=== PATIENT | male | born 1960 | race Caucasian/White ===

== ENCOUNTER 2016-08-03 06:04 | Inpatient (IN) | payer OTHER ==
[~2016-08-03 06:04] MED LIST: MORPHINE SULFATE 15 MG TABLET.SA PO PRN; RINGERS SOLUTION,LACTATED 1,000 ML IV PRN; ceFAZolin SODIUM 1 GM VIAL IV PRN
[2016-08-03] MEDS ORDERED: RINGERS SOLUTION,LACTATED 1,000 ML IV ONE ×3 (07:45→10:35)
[2016-08-03] MEDS: TRANEXAMIC ACID 1,000 MG in NORMAL SALINE 100 ML IV PRN ×3 (08:39→10:10)
[2016-08-03] MEDS: ROPIVACAINE HCL/PF 100 MG, KETOROLAC TROMETHAMINE 30 MG, EPINEPHrine 0.2 MG in NORMAL S... IJ PRN ×2 (09:48→10:00)
[2016-08-03] MEDS ORDERED: PROMETHAZINE HCL 5 MG in DEXTROSE 5 % IN WATER 50 ML IV PRN ×2 (11:03)
[2016-08-03] MEDS ORDERED: ACETAMINOPHEN 500 MG TABLET PO PRN (11:03)
[2016-08-03] MEDS ORDERED: MAGNESIUM HYDROXIDE 30 ML UDC PO PRN (11:03)
[2016-08-03] MEDS ORDERED: ONDANSETRON HCL/PF 2 MG/ML VIAL IV PRN (11:03)
[2016-08-03] MEDS ORDERED: MAG HYDROX/ALUMINUM HYD/SIMETH 30 ML UDC PO PRN (11:03)
[2016-08-03] MEDS ORDERED: diphenhydrAMINE HCL 50 MG/ML VIAL IV PRN (11:03)
[2016-08-03] MEDS ORDERED: HYDROmorphone HCL 1 MG/ML DISP.SYRIN IV PRN (11:03)
[2016-08-03] MEDS ORDERED: ZOLPIDEM TARTRATE 5 MG TABLET PO PRN (11:03)
[2016-08-03] MEDS ORDERED: NITROGLYCERIN 0.4 MG/TAB BTL SL PRN (11:07)
--- OUTSIDE RECORDS SUMMARY | 2016-08-03 11:17 | XMS REPORT | Continuity of Care Document ---
:1960 Author Organization [facility] ([facility]) Address [address] [place] [address] Phone [phone] Care Team Providers Name Role Phone Tawanda Nails Primary Care Provider [phone] Source Comments This disclosure is being made pursuant to the Care Everywhere program, applicable federal and state laws, and may not contain all informaitonavailable regarding this patient.[facility] ([facility]) Active Allergies and Adverse Reactions Allergen Noted Date Severity Reactions Comments Sulfamethoprim Ds 04/09/2012 Rash Current Medications Prescription Sig. Disp. Refills Start Date End Date Status atorvastatin 40 mg tablet Take 20 mg by Active mouth every evening. carvedilol 3.125 mg tablet Take 3.125 mg Active by mouth 2 times daily. aspirin 325 mg tablet Take 325 mg by Active mouth daily. multivitamin (MEN'S Take 1 Tab by Active MULTI-VITAMIN) tablet mouth daily. KRILL/OM3/DHA/EPA/OM6/LIP/ Take by mouth Active ASTX (KRILL OIL, OMEGA 3 & daily. 6, PO) L GASSERI/B BIFIDUM/B Take 1 Tab by Active LONGUM (REDD' COLON mouth daily. HEALTH PO) meloxicam 15 mg tablet Take 15 mg by Active mouth daily ramipril 10 mg capsule Take 10 mg by Active mouth 2 times daily hydrochlorothiazide 25 mg Take 0.5 45 tablet 3 01/21/2015 Active tablet tablets (12.5 mg total) by mouth daily cetirizine-pseudoephedrine Take 1 tablet Active 5-120 mg per XR tablet by mouth as needed. Active Problems Problem Noted Date Essential (primary) hypertension 12/31/2013 Raynaud's phenomenon 04/09/2012 Dyslipidemia Coronary artery disease Overview: TISHA to LAD-2009 Immunizations Name Dates Previously Given Next Due Influenza, unspecified 02/05/2012 Social History Tobacco Use Types Packs/Day Years Used Date Never Smoker Cigarettes Smokeless Tobacco: Never Used Alcohol Use Drinks/Week oz/Week Comments Yes Occasional drink, i.e. 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 Pulse 70 01/26/2016 11:13 AM LEATHER REPAIRER Temperature 36.9 C (98.4 F) 04/09/2012 8:57 AM LEATHER REPAIRER Respiratory Rate - - Height 1.854 m (6' 1") 01/26/2016 11:13 AM LEATHER REPAIRER Weight 136.079 kg (300 lb) 01/26/2016 11:13 AM LEATHER REPAIRER Body Mass Index 39.59 01/26/2016 11:13 AM LEATHER REPAIRER Oxygen Saturation - - Plan of Care Date Type Specialty Providers Description 02/07/2017 Appointment Heart and Vascular Nava Flores ARNP Chief Comp: Patient [address] [address] Visit [phone] (Fax) Health Maintenance Due Date Last Done Comments HCV Screening 1960 Hepatitis B Vaccine (1 of 3 - Primary Series) 1960 Tdap Vaccine 1972 Lipid Disorder Screening 10/20/1979 MMR Vaccine 10/20/1979 Td Vaccine 10/20/1979 Colonoscopy 2011 Prostate Cancer Screening 10/20/2011 Influenza Vaccine: Seasonal (#1) 10/05/2015 02/05/2012 Results from Last 3 Months Not on file
[2016-08-03] MEDS ORDERED: HYDROmorphone HCL 1 MG/ML DISP.SYRIN IV ONE (11:23)
[2016-08-03] MEDS ORDERED: NALOXONE HCL 0.4 MG/ML VIAL IV PRN (11:24)
[2016-08-03] MEDS ORDERED: HYDROmorphone HCL 2 MG/ML VIAL IV PRN (11:24)
[2016-08-03] MEDS: KETOROLAC TROMETHAMINE 15 MG/ML VIAL IV SCH ×3 (12:03→23:24)
[2016-08-03] MEDS: ceFAZolin SODIUM 1 GM in DEXTROSE 5 % IN WATER 100 ML IV SCH ×4 (12:10→18:56)
[2016-08-03] MEDS: DEXTROSE 5%-LACTATED RINGERS 1,000 ML IV PRN ×2 (12:10→21:30)
[2016-08-03] MEDS: oxyCODONE HCL/ACETAMINOPHEN 1 TAB TABLET PO PRN (15:34)
[2016-08-03] MEDS: MORPHINE SULFATE 15 MG TABLET.SA PO SCH (20:23)
[2016-08-03] MEDS: FLUTICASONE PROPIONATE 120 SPRAY INHALER NS SCH (20:25)
[2016-08-03] MEDS: RAMIPRIL 2.5 MG CAPSULE PO SCH (20:26)
[2016-08-03] MEDS: CARVEDILOL 3.125 MG TABLET PO SCH (20:26)
[2016-08-03] MEDS: SENNOSIDES/DOCUSATE SODIUM 1 TAB TABLET PO SCH (20:26)
[2016-08-03] MEDS: ROSUVASTATIN CALCIUM 10 MG TABLET PO SCH (20:26)
[2016-08-04] MEDS: ceFAZolin SODIUM 1 GM in DEXTROSE 5 % IN WATER 100 ML IV SCH ×2 (00:37)
[2016-08-04] MEDS: oxyCODONE HCL/ACETAMINOPHEN 1 TAB TABLET PO PRN ×4 (01:23→22:45)
[2016-08-04] MEDS: KETOROLAC TROMETHAMINE 15 MG/ML VIAL IV SCH ×4 (05:03→23:54)
[2016-08-04 05:35] LABS: Hematocrit 33.1 % (42.0-52.0); Hemoglobin 10.9 gm/dL (13.5-18.0); Mean Cell Volume 90.9 fl (78-100); Mean Corpuscular Hemoglobin 29.9 pg (27-31); Mean Corpuscular Hgb Conc 32.9 g/dl (32-36); Mean Platelet Volume 11.6 fl (6.0-9.5); Platelet Count 124 K/mm3 (150-450); Red Blood Count 3.64 M/mm3 (4.7-6.0); Red Cell Distribution Width 13.9 % (11.5-14.0); White Blood Count 5.7 K/mm3 (4.0-10.5)
[2016-08-04 05:42] LABS: Anion Gap 7.7 mmol/L (6.8-13.8); BUN/Creatinine Ratio 13.4 (9.0-21.6); Calcium * 8.2 mg/dL (7.9-10.9); Carbon Dioxide 32.2 mmol/L (24-32.6); Estimated Creat Clear 79.5; Potassium 3.9 mmol/L (3.4-4.6)
[2016-08-04] MEDS: DEXTROSE 5%-LACTATED RINGERS 1,000 ML IV PRN (05:47)
--- NOTE | 2016-08-04 07:58 | PN ---
Subjective - Date and Time Seen Date: 08/04/16 Time: 07:54 Subjective Narrative: Subjective: Reports no concerns or pain. Was able to get to the chair with therapy. Pain is well-controlled. Voiding without any complications. Tolerating by mouth intake. Denies any nausea or vomiting. Denies calf pain. Slept well. Physical exam: Alert and oriented to person, place and time Right lower extremity: Palpable dorsalis pedis pulse. Sensation grossly intact to light touch. Dressings clean and dry. Able to flex and extend ankle and toes. No excessive drainage. Calf and thigh are soft and nontender. Assessment: Postop day 1 status post right revision total knee arthroplasty. Plan: Continue with physical and occupational therapy weightbearing as tolerated. Continue with anticoagulation. 24 hours postoperative prophylactic antibiotics. Pain control with goal to rely on oral medications. Continue bowel regimen. Will need 6 weeks with walker or assitive device to protect joint while ambulating during the recovery process. Discharge planning. Discontinue drain and Jacobson catheter. Repeat labs in a.m. With history of DVT will plan for 30 days of anticoagulation. Objective - Vitals Vitals: Last Vital Signs Temp 36.8 C 08/04/16 02:01 Pulse 97 08/04/16 06:23 Resp 20 08/04/16 06:23 BP 129/79 08/04/16 06:23 Pulse Ox 100 08/04/16 06:23 - Abnormal Lab Findings Abnormal Lab Findings: Abnormal Lab Results 08/04/16 Range/Units 05:29 RBC 3.64 L (4.7-6.0) M/mm3 Hgb 10.9 L (13.5-18.0) gm/dL Hct 33.1 L (42.0-52.0) % Plt Count 124 L (150-450) K/mm3 MPV 11.6 H (6.0-9.5) fl - Exam Constitutional: Present: Alert, Oriented x3 Cauti Physician Documentation - Urinary Catheter Management Uretheral (Jacobson) Date of Insertion: 08/03/16 Time of Insertion: 08:00 Assessment/Plan - Problems/Diagnosis (1) Status post revision of total replacement of right knee Problem: Acute (2) CAD (coronary artery disease) Problem: Chronic (3) Hypertension Problem: Chronic (4) Hyperlipidemia Problem: Chronic (5) Hypothyroid Problem: Chronic (6) History of DVT (deep vein thrombosis) Problem: Chronic (7) Rheumatoid arthritis Problem: Chronic (8) Raynauds disease Problem: Chronic (9) Eczema Problem: Chronic (10) Psoriatic arthritis Problem: Chronic (11) Acute blood loss anemia Problem: Acute
[2016-08-04] MEDS: OMEGA-3 FATTY ACIDS 1 CAP CAPSULE PO SCH (08:27)
[2016-08-04] MEDS: FLUTICASONE PROPIONATE 120 SPRAY INHALER NS SCH ×2 (08:27→21:45)
[2016-08-04] MEDS: RAMIPRIL 2.5 MG CAPSULE PO SCH ×2 (08:27→21:45)
[2016-08-04] MEDS: HYDROCHLOROTHIAZIDE 12.5 MG CAPSULE PO SCH (08:27)
[2016-08-04] MEDS: MULTIVITAMINS 1 CAP CAPSULE PO SCH (08:27)
[2016-08-04] MEDS: CARVEDILOL 3.125 MG TABLET PO SCH ×2 (08:27→21:46)
[2016-08-04] MEDS: MORPHINE SULFATE 15 MG TABLET.SA PO SCH ×2 (08:28→21:45)
[2016-08-04] MEDS: ENOXAPARIN SODIUM 40 MG/0.4 ML SYRG SC SCH (10:44)
--- NOTE | 2016-08-04 13:48 | PN ---
Subjective - Date and Time Seen Date: 08/04/16 Time: 10:10 Subjective Narrative: Patient seen and examined at bedside this morning. No acute issues overnight. Jacobson catheter removed just a few minutes prior to my exam; patient states he has not yet voided on his own. No BM since surgery. Overall, patient states he is feeling pretty well and denies any issues or concerns at this time. Objective - Review of Systems Generalized/Overall Review: Reports: No Symptoms Reported EENTM: Reports: No Symptoms Reported Respiratory: Reports: No Symptoms Reported Cardiac: Reports: No Symptoms Reported Abdominal: Reports: No Symptoms Reported Genitourinary Symptoms: Reports: No Symptoms Reported Musculoskeletal Complaints: Reports: Joint Pain - s/p right knee surgery Neurological: Reports: No Symptoms Reported Skin: Reports: No Symptoms Reported Endocrine: Reports: No Symptoms Reported Misc: All systems neg except as marked - Vitals Vitals: Last Vital Signs Temp 37.3 C 08/04/16 09:47 Pulse 86 08/04/16 09:47 Resp 20 08/04/16 09:47 BP 122/65 08/04/16 09:47 Pulse Ox 99 08/04/16 09:47 - Abnormal Lab Findings Abnormal Lab Findings: Abnormal Lab Results 08/04/16 Range/Units 05:29 RBC 3.64 L (4.7-6.0) M/mm3 Hgb 10.9 L (13.5-18.0) gm/dL Hct 33.1 L (42.0-52.0) % Plt Count 124 L (150-450) K/mm3 MPV 11.6 H (6.0-9.5) fl - Exam Constitutional: Present: Alert, Oriented x3, Cooperative, Well developed, Well nourished, No distress ENT Exam: Present: hearing grossly normal, moist mucous membranes Respiratory: Present: lungs clear, normal breath sounds, no respiratory distress , no accessory muscle use Cardiovascular/Chest: Present: regular rate, rhythm Abdomen: Present: soft, nontender, nondistended, hypoactive Extremity: Present: other - s/p right TKA with dressing and drain in place Skin Exam: Present: warm/dry, no cyanosis Neurologic: Present: no motor/sensory deficits, alert, normal mood/affect, oriented x 3 Appearance: Present: appropriate appearance, appropriate insight, neat, no memory impairment Eye contact: Present: cooperative, good eye contact, normal speech Thoughts: Present: normal thought pattern, no apparent hallucination Cauti Physician Documentation - Urinary Catheter Management Uretheral (Jacobson) Date of Insertion: 08/03/16 Time of Insertion: 08:00 Date of Removal: 08/04/16 Time of Removal: 07:20 Assessment/Plan - Problems/Diagnosis (1) Acute blood loss anemia Problem: Acute Narrative: Acute postoperative blood loss anemia. (2) Status post revision of total replacement of right knee Problem: Acute Narrative: VTE ppx and pain management per ortho. (3) CAD (coronary artery disease) Problem: Chronic Narrative: Patient usually on appropriate therapy with aspirin, statin and beta-tang. Continue beta-tang and statin. Ortho managing VTE ppx. I would recommend restarting aspirin; can decrease to 81mg daily if there is concern for bleeding while on lovenox. (4) Hyperlipidemia Problem: Chronic Narrative: Continue home statin (5) Hypertension Problem: Chronic Qualifiers: Hypertension type: essential hypertension Qualified Code(s): I10 - Essential (primary) hypertension Narrative: Continue home medications. BP currently well controlled and below his BP goal of less than 140/90mmHg.
[2016-08-04] MEDS: SENNOSIDES/DOCUSATE SODIUM 1 TAB TABLET PO SCH (21:45)
[2016-08-04] MEDS: ROSUVASTATIN CALCIUM 10 MG TABLET PO SCH (21:45)
[2016-08-05] MEDS: oxyCODONE HCL/ACETAMINOPHEN 1 TAB TABLET PO PRN ×2 (03:03→12:11)
[2016-08-05] MEDS: KETOROLAC TROMETHAMINE 15 MG/ML VIAL IV SCH (05:14)
[2016-08-05 05:37] LABS: Hematocrit 28.5 % (42.0-52.0); Hemoglobin 9.5 gm/dL (13.5-18.0); Mean Cell Volume 89.1 fl (78-100); Mean Corpuscular Hemoglobin 29.7 pg (27-31); Mean Corpuscular Hgb Conc 33.3 g/dl (32-36); Mean Platelet Volume 11.5 fl (6.0-9.5); Platelet Count 109 K/mm3 (150-450); Red Cell Distribution Width 13.5 % (11.5-14.0); White Blood Count 6.5 K/mm3 (4.0-10.5)
[2016-08-05 05:55] LABS: Anion Gap 9.7 mmol/L (6.8-13.8); BUN/Creatinine Ratio 15.6 (9.0-21.6); Calcium * 8.1 mg/dL (7.9-10.9); Carbon Dioxide 29.9 mmol/L (24-32.6); Estimated Creat Clear 82.7; Potassium 3.6 mmol/L (3.4-4.6)
--- NOTE | 2016-08-05 08:42 | PN ---
Subjective - Date and Time Seen Date: 08/05/16 Time: 08:39 Subjective Narrative: Patient seen and examined at bedside this morning. No acute issues overnight. Patient states he is feeling pretty well and denies any issues or concerns at this time and is hoping to be discharged home later this morning. Objective - Review of Systems Generalized/Overall Review: Reports: No Symptoms Reported EENTM: Reports: No Symptoms Reported Respiratory: Reports: No Symptoms Reported Cardiac: Reports: No Symptoms Reported Abdominal: Reports: No Symptoms Reported Genitourinary Symptoms: Reports: No Symptoms Reported Musculoskeletal Complaints: Reports: Joint Pain - s/p right knee surgery Neurological: Reports: No Symptoms Reported Skin: Reports: No Symptoms Reported Endocrine: Reports: No Symptoms Reported Misc: All systems neg except as marked - Vitals Vitals: Last Vital Signs Temp 36.8 C 08/05/16 06:24 Pulse 73 08/05/16 06:24 Resp 20 08/05/16 06:24 BP 102/73 08/05/16 06:24 Pulse Ox 93 08/05/16 06:24 - Abnormal Lab Findings Abnormal Lab Findings: Abnormal Lab Results 08/05/16 Range/Units 05:33 RBC 3.20 L (4.7-6.0) M/mm3 Hgb 9.5 L (13.5-18.0) gm/dL Hct 28.5 L (42.0-52.0) % Plt Count 109 L (150-450) K/mm3 MPV 11.5 H (6.0-9.5) fl - Exam Constitutional: Present: Alert, Oriented x3, Cooperative, Well developed, Well nourished, No distress ENT Exam: Present: hearing grossly normal, moist mucous membranes Respiratory: Present: lungs clear, normal breath sounds, no respiratory distress , no accessory muscle use Cardiovascular/Chest: Present: regular rate, rhythm Abdomen: Present: soft, nontender Extremity: Present: other - s/p right TKA revision Skin Exam: Present: warm/dry, no cyanosis Neurologic: Present: no motor/sensory deficits, alert, normal mood/affect, oriented x 3 Appearance: Present: appropriate appearance, appropriate insight, neat, no memory impairment Eye contact: Present: cooperative, good eye contact, normal speech Thoughts: Present: normal thought pattern, no apparent hallucination Cauti Physician Documentation - Urinary Catheter Management Uretheral (Jacobson) Date of Insertion: 08/03/16 Time of Insertion: 08:00 Date of Removal: 08/04/16 Time of Removal: 07:20 Assessment/Plan Plan Narrative: Okay to discharge home today from my perspective. Follow-up with PCP, Dr. Nails , within 1-2 weeks. - Problems/Diagnosis (1) Acute blood loss anemia Problem: Acute Narrative: acute postoperative blood loss anemia (2) Status post revision of total replacement of right knee Problem: Acute Narrative: VTE prophylaxis and pain management per ortho (3) CAD (coronary artery disease) Problem: Chronic Narrative: Patient usually on appropriate therapy with aspirin, statin and beta-tang. Continue beta-tang and statin. Ortho managing VTE ppx. I would recommend restarting aspirin; can decrease to 81mg daily if there is concern for bleeding while on lovenox. (4) Hyperlipidemia Problem: Chronic (5) Hypertension Problem: Chronic Qualifiers: Hypertension type: essential hypertension Qualified Code(s): I10 - Essential (primary) hypertension Narrative: Continue home medications. BP currently well controlled and below his BP goal of less than 140/90mmHg.
--- NOTE | 2016-08-05 09:51 | DS ---
(1) Status post revision of total replacement of right knee Problem: Acute (2) CAD (coronary artery disease) Problem: Chronic (3) Hypertension Problem: Chronic Qualifiers: Hypertension type: essential hypertension Qualified Code(s): I10 - Essential (primary) hypertension (4) Hyperlipidemia Problem: Chronic (5) Hypothyroid Problem: Chronic (6) History of DVT (deep vein thrombosis) Problem: Chronic (7) Rheumatoid arthritis Problem: Chronic (8) Raynauds disease Problem: Chronic (9) Eczema Problem: Chronic (10) Psoriatic arthritis Problem: Chronic (11) Acute blood loss anemia Problem: Acute Description of Stay: Mr. Garcia was admitted to the floor after undergoing revision right total knee arthroplasty. Tolerated this well. Was admitted to the floor postoperatively for 24 hours of IV antibiotics, pain control, medical comanagement, and occupational and physical therapy. OT and PT were consulted to assist with activities of daily living and ambulation. Was made weightbearing as tolerated with range of motion as tolerated. Pain was initially controlled with IV regimen. This was transitioned to oral once tolerating a by mouth intake. Was resumed on home diet and medications. Had a Jacobson catheter inserted and the operating room which was discontinued on postoperative day 1. A drain was placed intraoperatively into the knee which was discontinued on postoperative day 2. Lovenox SCD and AYDIN hose were utilized for DVT prophylaxis. Vital signs remained stable to the hospital course. Serial labs were obtained which showed a final hemoglobin of 9.3 grams. BMP was reviewed and was stable. Physical examination throughout the hospital course showed an extremity that had sensation that was intact to light touch, palpable pulses, a benign wound, motor intact to the toes, ankle, and knee. Knee range of motion was approximately 0 degrees to 70 degrees. Once an oral pain regimen was tolerated and physical therapy goals were met, it was felt that they were stable for discharge to home. Instructions: Continue with weightbearing as tolerated and range of motion as tolerated. He is okay to shower as long as there is no drainage from the wound. He was instructed that if there is any drainage she is to keep the wound clean and dry. Cover with dry gauze and tape. Change every 2-3 days as needed. Cover wound while showering if there is any drainage. Continue with physical therapy. Resume home diet. Report any fever over 101.5 Fahrenheit, uncontrolled pain, increased drainage, foul odor of drainage, new or increased calf pain or shortness of breath, or any other significant complaints. Xarelto to be utilized for 30 days due to history of DVT. Continue with AYDIN hose on the operative extremity until instructed otherwise. No driving until instructed otherwise. Follow up in approximately 10-14 days. Procedures Performed: see notes below List Procedures: Revision right total knee arthroplasty Discharge Disposition: Home self care Disposition: Home self-care Condition: Good Discharge Activity: Activity as tolerated, Weight bearing Care Home Therapy: Physicial Therapy Referrals: Tawanda Nails MD [Primary Care Provider] - Additional Patient Instructions (free text): Follow up with Dr. De La Torre on August at 10:45 Am. Prescriptions (Any new or edited meds): Morphine Sulfate [Ms Contin] 15 mg PO Q12H #20 tablet.sa Rivaroxaban [Xarelto] 10 mg PO DAILY #30 tab oxyCODONE HCL/ACETAMINOPHEN [Percocet 5 MG/325 MG] 2 tab PO Q4H PRN #90 tablet PRN Reason: Moderate Pain Complete Home Medications List: Complete Home Medication List: Ramipril 10 mg PO BID 06/06/12 Aspirin 325 mg PO DAILY 10/19/12 Atorvastatin Calcium [Lipitor] 20 mg PO HS 10/19/12 Carvedilol [Coreg] 3.125 mg PO BID 10/19/12 Meloxicam [Mobic] 15 mg PO DAILY 07/13/15 Acetaminophen [Tylenol] 500 mg PO Q4H PRN MDD 8 tab 07/15/16 Fluticasone Propionate [Flonase] 1 spray NS BID 07/15/16 Hydrochlorothiazide 12.5 mg PO DAILY 07/15/16 Multivitamins [Multivitamin Neelam] 1 cap PO DAILY 07/15/16 Nitroglycerin [Nitrostat] 0.4 mg SL [id number] PRN 07/15/16 [place]-3/Dha/Epa/Fish Oil [Fish Oil 500 mg Softgel] 1 each PO DAILY 07/15/16 Morphine Sulfate [Ms Contin] 15 mg PO Q12H #20 tablet.sa 08/05/16 Rivaroxaban [Xarelto] 10 mg PO DAILY #30 tab 08/05/16 Sennosides/Docusate Sodium [Senokot-S] 2 tab PO HS tablet 08/05/16 oxyCODONE HCL/ACETAMINOPHEN [Percocet 5 MG/325 MG] 2 tab PO Q4H PRN #90 tablet 08/05/16
[2016-08-05] MEDS: CARVEDILOL 3.125 MG TABLET PO SCH (10:16)
[2016-08-05] MEDS: RAMIPRIL 2.5 MG CAPSULE PO SCH (10:16)
[2016-08-05] MEDS: ENOXAPARIN SODIUM 40 MG/0.4 ML SYRG SC SCH (10:17)
[2016-08-05] MEDS: FLUTICASONE PROPIONATE 120 SPRAY INHALER NS SCH (10:17)
[2016-08-05] MEDS: MULTIVITAMINS 1 CAP CAPSULE PO SCH (10:17)
[2016-08-05] MEDS: HYDROCHLOROTHIAZIDE 12.5 MG CAPSULE PO SCH (10:17)
[2016-08-05] MEDS: OMEGA-3 FATTY ACIDS 1 CAP CAPSULE PO SCH (10:17)
[2016-08-05] MEDS: MORPHINE SULFATE 15 MG TABLET.SA PO SCH (10:20)
[2016-08-05 15:17] VITALS: BP 150/78
== END 2016-08-05 16:01 | disposition home or self-care (01) | DRG 468 ==
LOC: MS 06:04
PROVIDERS: ADMIT Orthopaedic Surgery; ATTEND Orthopaedic Surgery
PROC: 0SPC0JZ Removal of Synthetic Substitute from Right Knee Joint, Open Approach (ICD-10-PCS; 2016-08-03)
PROC: 0SRC0J9 Replacement of Right Knee Joint with Synthetic Substitute, Cemented, Open Approach (ICD-10-PCS; principal; 2016-08-03 08:00)
DX: T84.032A Mechanical loosening of internal right knee prosthetic joint, initial encounter (principal); I10 Essential (primary) hypertension; E78.5 Hyperlipidemia, unspecified; E03.9 Hypothyroidism, unspecified; Z86.718 Personal history of other venous thrombosis and embolism; Z79.82 Long term (current) use of aspirin

== ENCOUNTER 2020-05-08 07:31 | Inpatient (IN) ==
[~2020-05-08 07:31] MED LIST changes: -MORPHINE SULFATE 15 MG TABLET.SA PO PRN; -RINGERS SOLUTION,LACTATED 1,000 ML IV PRN; +TRANEXAMIC ACID 1,000 MG in NORMAL SALINE 100 ML IV PRN; +VANCOMYCIN/WATER FOR INJ (PEG) 1 GM/200 ML BAG IV PRN
[2020-05-08] MEDS ORDERED: fentaNYL CITRATE/PF 50 MCG/ML AMPUL IV ONE ×3 (08:02→10:03)
[2020-05-08 08:06] LABS: Hematocrit 42.3 % (42.0-52.0); Hemoglobin 13.4 gm/dL (13.5-18.0); Mean Cell Volume 92.8 fl (78-100); Mean Corpuscular Hemoglobin 29.4 pg (27-31); Mean Corpuscular Hgb Conc 31.7 g/dl (32-36); Neutrophil # 16.4 K/mm3 (1.3-6.0); Neutrophil % 88.7 % (42-75.0); Platelet Count 159 K/mm3 (150-450); Red Blood Count 4.56 M/mm3 (4.7-6.0); White Blood Count 18.5 K/mm3 (4.0-10.5)
--- NOTE | 2020-05-08 08:08 | ERNOTE ---
<Ene Vivar - Last Filed: 05/08/20 08:13> Lower Extremity HPI - Narrative Date of Service: 05/08/20 - General Lower Extremities Pain: knee: right Time Seen by Provider: 05/08/20 07:46 Source: patient Exam Limitations: no limitations - Immun/Allergies/Home Medications Immunizations: IMMUNIZATION HX Immunizations Up to Date Yes History of Influenza Vaccine Yes Hx Pneumococcal Vaccination No Allergies/Adverse Reactions: Allergies Allergy/AdvReac Type Severity Reaction Status Date / Time Sulfa (Sulfonamide Allergy Mild Hives Verified 12/02/19 16:14 Antibiotics) azithromycin [From Zithromax] AdvReac Mild RASH Verified 12/02/19 16:14 clarithromycin AdvReac Mild RASH Verified 12/02/19 16:14 [From Biaxin XL] Home Medications: HOME MEDICATIONS Aspirin 325 mg PO DAILY 10/19/12 [Last Taken 06/18/18 04:30] Acetaminophen [Tylenol] 500 mg PO Q4H PRN MDD 8 tab 07/15/16 [Last Taken Unknown] Multivitamins [Multivitamin Neelam] 1 cap PO DAILY 07/15/16 [Last Taken 08/02/16 20:00] Lima-3/Dha/Epa/Fish Oil [Fish Oil 500 mg Softgel] 1 ea PO DAILY 07/15/16 [Last Taken 06/18/18 04:30] omeprazole magnesium 20 mg capsule,delayed release 20 mg PO DAILY 01/30/18 [Last Taken 06/18/18 04:30] fluticasone propionate 50 mcg/actuation nasal spray,suspension 2 spray KYLEIGH DAILY #18.2 ml 02/21/19 [Last Taken Unknown] nitroglycerin 0.4 mg sublingual tablet 0.4 mg SL Q5M PRN #20 tab 08/19/19 [Last Taken Unknown] carvedilol 6.25 mg tablet 6.25 mg PO BID #180 tab 10/18/19 [Last Taken Unknown] ramipril 10 mg capsule 10 mg PO BID #180 cap 10/18/19 [Last Taken Unknown] hydrochlorothiazide 25 mg tablet 25 mg PO DAILY #90 tab 11/06/19 [Last Taken Unknown] meloxicam 15 mg tablet 15 mg PO DAILY #90 tab 11/06/19 [Last Taken Unknown] montelukast 10 mg tablet 10 mg PO DAILY #90 tab 11/06/19 [Last Taken Unknown] amlodipine 5 mg tablet 5 mg PO DAILY #90 tab 12/02/19 [Last Taken Unknown] atorvastatin 20 mg tablet 20 mg PO HS #90 tab 12/02/19 [Last Taken Unknown] cetirizine 10 mg tablet 10 mg PO HS #90 tab 04/17/20 [Last Taken Unknown] - History of Present Illness Narrative: Patient is a 59-year-old male that presents to the emergency department with 3 days of achiness and weakness. Patient noted upon awakening approximately 2 hours prior to arrival that he had pain to the right knee difficulty doing mike ght bearing and extending the knee. Patient has had previous history of DVT and states this feels similar. Patient denies any chest pain or shortness of breath. Date (Duration): 05/08/20 Time (Timing): 06:00 Occurred: this morning Location of Incident: home Method of Injury: Reports: no apparent injury Loss of Consciousness: Reports: no loss of consciousness Modifying Factors - (Improves): Reports: rest Modifying Factors - (Worsens): Reports: movement Associated Symptoms: Reports: unable to bear weight Other Injuries: Reports: none Review of Systems - Review of Systems Constitutional: Present: weakness, malaise EYE: Present: no symptoms reported ENT: Present: no symptoms reported Respiratory: Present: no symptoms reported Cardiology: Present: no symptoms reported Gastrointestinal/Abdominal: Present: no symptoms reported Genitourinary: Present: no symptoms reported Musculoskeletal: Present: joint pain, joint swelling Skin: Present: no symptoms reported Neurological: Present: no symptoms reported Endocrine: Present: no symptoms reported Hematologic/Lymphatic: Present: no symptoms reported Psych: Present: no symptoms reported Medical History (Last Reviewed 05/08/20 @ 08:00 by Ene Vivar MD) CAD (coronary artery disease) Onset Date: Unknown GERD (gastroesophageal reflux disease) Onset Date: Unknown Hyperlipidemia Onset Date: Unknown Hypertension Onset Date: Unknown Hypothyroidism Onset Date: 07/25/11 Hypovitaminosis D Onset Date: 08/01/17 Insomnia Onset Date: 10/18/13 Loss of smell Onset Date: 09/20/14 Rule out electrolyte imbalance; Prevacid was started; pt. lost sense of smell Moderate eczema Onset Date: 09/20/14 1 cm spot on back Psoriatic arthritis Onset Date: 10/20/13 Raynaud's syndrome Onset Date: Unknown Rheumatoid arthritis Onset Date: Unknown Anosmia Onset Date: 09/20/14 DVT (deep venous thrombosis) Onset Date: Unknown Right knee DJD Onset Date: Unknown Vitamin D deficiency Onset Date: 09/20/14 Surgical History: Surgical History (Last Reviewed 05/08/20 @ 08:00 by Ene Vivar MD) Status post revision of total replacement of right knee (Resolved) Onset Date: 08/03/16 08/03/16 [place] ventriculography Onset Date: 08/25/09 History of arthroscopy of right knee Onset Date: 07/07/1107/03-arthroscopic debridement 07/04-arthroscopic synovectomy and hematoma evacuationm 07/06-arthroscopic debridement and synovectomy removal of blood clot- 07/04/11, 07/05/11, 07/07/11 History of cardiac catheterization Onset Date: 08/25/09 History of colonoscopy Onset Date: 06/18/18 06/18/18 Bagan-capacious, redundant colon. Recheck 10 yrs. History of coronary angiogram Onset Date: 08/25/09 History of elbow surgery Onset Date: Unknown Perera-removal of left elbow bursa History of tonsillectomy Onset Date: ~1967 History of total knee arthroplasty Onset Date: 06/11/12 Raymond-06/13/11 RTK. 06/11/12-LTK. De La Torre-08/03/16 rev rt tka w/ revision of scar. 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 Service: No Tobacco: Smoking Status: Never smoker Alcohol: alcohol intake: current details: occassional Substance Use: substance use type: does not use Dietary Habits: caffeine: Yes Personal Safety: victim of physical abuse: No victim of emotional abuse: No Physical Exam - Physical Exam General Appearance: Present: wd/wn, alert, mild distress Head Exam: Present: normal inspection, no evidence of injury Eye Exam: Normal inspection: bilateral, PERRL: bilateral, EOMI: bilateral Ears, Nose, Throat: Present: normal ENT inspection Neck: Present: normal inspection, nontender Respiratory: Present: no respiratory distress, no accessory muscle use, chest nontender, decreased breath sounds - bilateral bases Cardiovascular/Chest: Present: regular rate, rhythm, no murmur, normal peripheral pulses Peripheral Pulses: N=norm/S=strong/W=weak/B=bound/A=absent: Radial (R): Normal, Radial (L): Normal, Dorsalis-pedis (R): Normal, Dorsalis-pedis (L): Normal Gastrointestinal/Abdominal: Present: normal bowel sounds, nontender, nondistended, soft, no organomegaly Back Exam: Present: normal inspection, normal range of motion Extremity Exam: Present: decreased range of motion - Right knee, joint redness, joint swelling - Increased warmth to palpation anterior right knee Neurological Exam: Present: alert, oriented, normal mood/affect, no motor/sensory deficits Skin Exam: Present: other - Right knee erythematous and warm to touch Lymphatic Exam: Present: no adenopathy Progress - Vital Signs Vital Signs: Vital Signs 05/08/20 07:36 Temperature 37.7 C Pulse Rate 100 Respiratory Rate 14 Blood Pressure 127/72 O2 Sat by Pulse Oximetry 100 - Progress/Reassessment Chief Complaint: Lower Extremity Pain/ Injury - Transfer of Care Physician Sign Out: Ene Vivar Brief History: Pain right knee and decreased ROM. Pending lab and US. Endorsed at change of shift. Decreased breath sounds at base bilateral. Receiving Physician: Ervin Abreu Departure Clinical Impression: Leg pain, Septic arthritis - Departure Disposition: Still a patient Condition: Fair Referrals: Justin Cardona DO [Primary Care Provider] - <Ervin Abreu - Last Filed: 05/08/20 12:32> Lower Extremity HPI - Immun/Allergies/Home Medications Immunizations: IMMUNIZATION HX Immunizations Up to Date Yes History of Influenza Vaccine Yes Hx Pneumococcal Vaccination No Medical History (Last Reviewed 05/08/20 @ 08:00 by Ene Vivar MD) CAD (coronary artery disease) Onset Date: Unknown GERD (gastroesophageal reflux disease) Onset Date: Unknown Hyperlipidemia Onset Date: Unknown Hypertension Onset Date: Unknown Hypothyroidism Onset Date: 07/25/11 Hypovitaminosis D Onset Date: 08/01/17 Insomnia Onset Date: 10/18/13 Loss of smell Onset Date: 09/20/14 Rule out electrolyte imbalance; Prevacid was started; pt. lost sense of smell Moderate eczema Onset Date: 09/20/14 1 cm spot on back Psoriatic arthritis Onset Date: 10/20/13 Raynaud's syndrome Onset Date: Unknown Rheumatoid arthritis Onset Date: Unknown Anosmia Onset Date: 09/20/14 DVT (deep venous thrombosis) Onset Date: Unknown Right knee DJD Onset Date: Unknown Vitamin D deficiency Onset Date: 09/20/14 Surgical History: Surgical History (Last Reviewed 05/08/20 @ 08:00 by Ene Vivar MD) Status post revision of total replacement of right knee (Resolved) Onset Date: 08/03/16 08/03/16 [place] ventriculography Onset Date: 08/25/09 History of arthroscopy of right knee Onset Date: 07/07/1107/03-arthroscopic debridement 07/04-arthroscopic synovectomy and hematoma evacuationm 07/06-arthroscopic debridement and synovectomy removal of blood clot- 07/04/11, 07/05/11, 07/07/11 History of cardiac catheterization Onset Date: 08/25/09 History of colonoscopy Onset Date: 06/18/18 06/18/18 [place]-capacious, redundant colon. Recheck 10 yrs. History of coronary angiogram Onset Date: 08/25/09 History of elbow surgery Onset Date: Unknown Perera-removal of left elbow bursa History of tonsillectomy Onset Date: ~1967 History of total knee arthroplasty Onset Date: 06/11/12 Raymond-06/13/11 RTK. 06/11/12-LTK. De La Torre-08/03/16 rev rt tka w/ revision of scar. 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 - Vital Signs Patient's Vital Signs:: I have reviewed the patient's vital signs. Vital Signs: Vital Signs 05/08/20 07:36 05/08/20 08:08 05/08/20 08:30 Temperature 37.7 C Pulse Rate 100 98 80 Respiratory Rate 14 14 12 Blood Pressure 127/72 107/66 87/42 L O2 Sat by Pulse Oximetry 100 100 98 05/08/20 09:11 05/08/20 09:28 Temperature Pulse Rate 91 68 Respiratory Rate 16 12 Blood Pressure 107/71 137/74 O2 Sat by Pulse Oximetry 100 95 - EKG EKG #1 EKG read: Interp. by me EKG Comments: Sinus tachycardia rate 103. Non-specific ST/T wave changes, no STEMI noted. - X-Ray X-Ray #1 X-Ray: chest Interpretation: Interp. by me X-ray Comments: I personally reviewed x-ray images as well as official radiology report X-Ray #2 X-Ray: knee Interpretation: Interp. by me X-ray Comments: I personally reviewed x-ray images as well as official radiology report - CT/Ultrasound CT/Ultrasound Narrative: I reviewed official radiology report for US - Progress/Reassessment Progress Note-Subjective: 05/08/20 12:28 Patient checked out to me at am shift change. I spoke to the patient and examined him. He has clinical evidence of septic right knee. I ordered additional labs and x-ray. I consulted Orthopedics and the patient was seen by Ortho and arthrocetesis done revealing patter worrisome for septic arthritis. It was recommended that IV ABx be held until definitive surgical wash out. Dr Bull saw the patient for surgical clearance and the patient will be admitted.
[2020-05-08 08:16] LABS: Prothrombin Time (Patient) 10.7 Seconds (9.1-10.7)
[2020-05-08 08:18] LABS: INR 1.03 INR (0.92-1.08)
[2020-05-08 08:21] LABS: Albumin * 3.6 gm/dl (3.4-5.0); Anion Gap 14.2 mmol/L (6.8-13.8); BUN/Creatinine Ratio 12.4 (9.0-21.6); Ca. Corrected For Albumin 9.2 mg/dL (8.4-10.2); Calcium * 9.2 mg/dL (7.9-10.9); Carbon Dioxide 25.6 mmol/L (24-32.6); Potassium 3.8 mmol/L (3.4-4.6); Total Protein 8.6 gm/dL (6.2-8.2)
[2020-05-08] MEDS ORDERED: NORMAL SALINE 1,000 ML IV ONE (09:08)
[2020-05-08] MEDS ORDERED: HYDROmorphone HCL 1 MG/ML DISP.SYRIN IV ONE (12:00)
[2020-05-08 12:43] LABS: Body Fluid WBC 145099 /uL (0-1000)
--- NOTE | 2020-05-08 13:10 | CONS ---
[facility] - General Date of Service: 05/08/20 Narrative: Mr. Garcia is a 59-year-old gentleman who previously underwent a revision right total knee arthroplasty in July 2016 due to aseptic loosening. He states approximately 2 or 3 days ago he started noticing increased fatigue and more acutely increased pain in his right knee. He was brought to the emergency department and found to have elevated inflammatory markers. He had a negative Covid work-up but had noted knee pain. An aspirate was obtained which was concerning for infection although the results are pending. Source: patient Exam Limitations: no limitations - History of Present Illness Timing/Duration: 1 week Severity: moderate Modifying Factors - (Worsens): Reports: movement Modifying Factors - (Improves): Reports: immobilization Associated Symptoms: fever/chills Allergies/Adverse Reactions: Allergies Sulfa (Sulfonamide Antibiotics) Allergy (Mild, Verified 05/08/20 12:52) Hives azithromycin [From Zithromax] Adverse Reaction (Mild, Verified 05/08/20 12:52) RASH clarithromycin [From Biaxin XL] Adverse Reaction (Mild, Verified 05/08/20 12:52) RASH Home Medications: Home Medications Medication Instructions Recorded Last Taken Aspirin 325 mg PO DAILY 10/19/12 06/18/18 04:30 Acetaminophen [Tylenol] 500 mg PO Q4H PRN MDD 8 tab 07/15/16 Unknown Multivitamins [Multivitamin Neelam] 1 cap PO DAILY 07/15/16 08/02/16 20:00 O[place]-3/Dha/Epa/Fish Oil [Fish Oil 1 ea PO DAILY 07/15/16 06/18/18 04:30 500 mg Softgel] omeprazole magnesium 20 mg 20 mg PO DAILY 01/30/18 06/18/18 04:30 capsule,delayed release fluticasone propionate 50 2 spray KYLEIGH DAILY #18.2 ml 02/21/19 Unknown mcg/actuation nasal spray,suspension nitroglycerin 0.4 mg sublingual 0.4 mg SL Q5M PRN #20 tab 08/19/19 Unknown tablet carvedilol 6.25 mg tablet 6.25 mg PO BID #180 tab 10/18/19 Unknown ramipril 10 mg capsule 10 mg PO BID #180 cap 10/18/19 Unknown hydrochlorothiazide 25 mg tablet 25 mg PO DAILY #90 tab 11/06/19 Unknown meloxicam 15 mg tablet 15 mg PO DAILY #90 tab 11/06/19 Unknown montelukast 10 mg tablet 10 mg PO DAILY #90 tab 11/06/19 Unknown amlodipine 5 mg tablet 5 mg PO DAILY #90 tab 12/02/19 Unknown atorvastatin 20 mg tablet 20 mg PO HS #90 tab 12/02/19 Unknown cetirizine 10 mg tablet 10 mg PO HS #90 tab 04/17/20 Unknown Ascorbic Acid [Vitamin C] 250 mg PO DAILY 05/08/20 Unknown Cholecalciferol (Vitamin D3) 250 mcg PO DAILY 05/08/20 Unknown [Vitamin D3] Zinc Gluconate [Zinc] 50 mg PO DAILY 05/08/20 Unknown Procedures Administration of [id number], combined (10/19/12) Application of splint (05/30/04) Bursectomy (11/10/06) Closure of skin and subcutaneous tissue of other sites (10/19/12) Excision of semilunar cartilage of knee (05/05/06) Other local excision or destruction of lesion of joint, knee (07/01/11) Removal of Synthetic Substitute from Right Knee Joint, Open Approach (08/03/16) Replacement of Right Knee Joint with Synthetic Substitute, Cemented, Open Approach (08/03/16) Synovectomy, knee (07/01/11) Total knee replacement (06/11/12) Transfusion of packed cells (06/28/11) Venous catheterization, not elsewhere classified (07/01/11) Review of Systems - Review of Systems Narrative: Negative except for above Physical Examination - Exam Narrative: Right lower extremity: Well-healed surgical incision, mild effusion, mild erythema most notably around the ankle but calor around the knee. Tender knee with pain with range of motion, no gross deformity, no open wounds about the knee, intact to light touch and palpable dorsalis pedis pulse Vital Signs: Vital Signs - Last Taken Temp 37.6 C 05/08/20 12:00 Pulse 103 H 05/08/20 12:45 Resp 12 05/08/20 12:45 BP 146/81 H 05/08/20 12:45 Pulse Ox 99 05/08/20 12:45 O2 Oxygen Delivery Method Room Air Constitutional: Present: Alert, Oriented x3 - Results and Findings: Narrative: Ultrasound negative for DVT, noted varicosities, chest x-ray concerning for possible pulmonary pathology, right knee x-rays show no acute osseous findings, status post revision Sigma TC 3 total knee arthroplasty without signs of lysis or loosening, no large effusion Lab/Microbiology results last 24 hrs: Abnormal/Pending Laboratory Last 24 HRS 05/08/20 05/08/20 05/08/20 10:30 09:30 08:00 WBC RBC Hgb MCHC MPV Immature Gran # (Auto) Neutrophils % Lymphocytes % Neutrophils # Lymphocytes # Monocytes # ESR Anion Gap Creatinine Est GFR (Non-Af Amer) Random Glucose Uric Acid C-Reactive Prot, Quant 15.0 H B-Natriuretic Peptide 719 H Total Protein Fluid WBC 212630 H Fluid RBC Greater than 1000.0 H 05/08/20 05/08/20 05/08/20 08:00 08:00 08:00 WBC 18.5 H RBC 4.56 L Hgb 13.4 L MCHC 31.7 L MPV 12.0 H Immature Gran # (Auto) 0.06 H Neutrophils % 88.7 H Lymphocytes % 4.3 L Neutrophils # 16.4 H Lymphocytes # 0.79 L Monocytes # 1.2 H ESR 61 H Anion Gap 14.2 H Creatinine 1.53 H D Est GFR (Non-Af Amer) 50 L D Random Glucose 111 H Uric Acid C-Reactive Prot, Quant B-Natriuretic Peptide Total Protein 8.6 H Fluid WBC Fluid RBC 05/08/20 07:46 WBC RBC Hgb MCHC MPV Immature Gran # (Auto) Neutrophils % Lymphocytes % Neutrophils # Lymphocytes # Monocytes # ESR Anion Gap Creatinine Est GFR (Non-Af Amer) Random Glucose Uric Acid 8.0 H C-Reactive Prot, Quant B-Natriuretic Peptide Total Protein Fluid WBC Fluid RBC - Assessments/Findings (1) Septic arthritis Problem: Acute Qualifiers: Septic arthritis location: knee Septic arthritis organism: due to unspecified organism Laterality: right Qualified Code(s): M00.9 - Pyogenic arthritis, unspecified (2) 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
[2020-05-08] MEDS: HYDROmorphone HCL 1 MG/ML DISP.SYRIN IV PRN ×5 (13:11→22:45)
--- NOTE | 2020-05-08 13:17 | HP ---
Chief Complaint - Chief Complaint Date of Service: 05/08/20 Time of Service: 12:00 Chief Complaint: right knee pain History of Present Illness: Patient with PMHx of previous knee replacement X3, previous OR X 2, rheumatoid arthritis, previous DVT, eczema presented to the ED for acute right knee pain. He'd been having a fever for about 48 hours with body aches, but the knee pain started overnight. He's had his knee replaced twice, and he reports the hardware was coming apart. His most recent surgery was several years ago. In the ED for my admission exam, he has right lower extremity erythema that his reports was not present earlier this morning. ED workup showed WBC of 18.5, ESR of 61, GFR decreased to 50, creatinine elevated to 1.53. Ortho was consulted for possible septic joint, and joint aspiration was done. He is to be admitted for IV antibiotics and operative washout of his prosthesis. Medical History (Last Reviewed 05/08/20 @ 14:35 by Ervin Diaz CRNA) CAD (coronary artery disease) Onset Date: Unknown GERD (gastroesophageal reflux disease) Onset Date: Unknown Hyperlipidemia Onset Date: Unknown Hypertension Onset Date: Unknown Hypothyroidism Onset Date: 07/25/11 Hypovitaminosis D Onset Date: 08/01/17 Insomnia Onset Date: 10/18/13 Loss of smell Onset Date: 09/20/14 Rule out electrolyte imbalance; Prevacid was started; pt. 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 Recheck 10 yrs. History of coronary angiogram Onset Date: 08/25/09 History of elbow surgery Onset Date: Unknown [facility]-removal of left elbow bursa History of tonsillectomy Onset Date: ~1967 History of total knee arthroplasty Onset Date: 06/11/12 [facility]-06/13/11 RTK. 06/11/12-LTK. [facility]-08/03/16 rev rt tka w/ revision of scar. Status post PICC central line placement Onset Date: 07/07/11 stent Onset Date: 08/25/09 Family History: Family History (Last Reviewed 05/08/20 @ 14:35 by Ervin Diaz CRNA) Mother , age 72-dementia ([place] disease) Hypertension Seizure disorder Father , age 86-stroke Heart disease CVA (cerebral vascular accident) Brother Hypertension Heart disease Sister Hypertension Heart disease [place] disease Grandfather Heart disease Grandmother Heart disease Social History: (Last Reviewed 05/08/20 @ 12:52 by Enrique Blackman RN) Social History: Marital status: household members: spouse number of children: 2 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 Service: No Tobacco: Smoking Status: Never smoker Alcohol: alcohol intake: current details: occassional Substance Use: substance use type: does not use Dietary Habits: caffeine: Yes Personal Safety: victim of physical abuse: No victim of emotional abuse: No Review Of Systems (GEN) - Review of Systems Generalized/Overall Review: Present: Fever, Fatigue Respiratory: Absent: Cough Cardiac: Absent: Chest Pain Abdominal: Absent: Nausea Genitourinary: Present: No Symptoms Reported Musculoskeletal: Present: Joint Pain Immunizations: IMMUNIZATION HX Immunizations Up to Date Yes History of Influenza Vaccine Yes Hx Pneumococcal Vaccination No Allergies/Adverse Reactions: Allergies Allergy/AdvReac Type Severity Reaction Status Date / Time Sulfa (Sulfonamide Allergy Mild Hives Verified 05/08/20 12:52 Antibiotics) azithromycin [From Zithromax] AdvReac Mild RASH Verified 05/08/20 12:52 clarithromycin AdvReac Mild RASH Verified 05/08/20 12:52 [From Biaxin XL] Home Medications: HOME MEDICATIONS Aspirin 325 mg PO DAILY 10/19/12 [Last Taken 06/18/18 04:30] Acetaminophen [Tylenol] 500 mg PO Q4H PRN MDD 8 tab 07/15/16 [Last Taken Unknown] Multivitamins [Multivitamin Neelam] 1 cap PO DAILY 07/15/16 [Last Taken 08/02/16 20:00] [place]-3/Dha/Epa/Fish Oil [Fish Oil 500 mg Softgel] 1 ea PO DAILY 07/15/16 [Last Taken 06/18/18 04:30] omeprazole magnesium 20 mg capsule,delayed release 20 mg PO DAILY 01/30/18 [Last Taken 06/18/18 04:30] fluticasone propionate 50 mcg/actuation nasal spray,suspension 2 spray KYLEIGH DAILY #18.2 ml 02/21/19 [Last Taken Unknown] nitroglycerin 0.4 mg sublingual tablet 0.4 mg SL Q5M PRN #20 tab 08/19/19 [Last Taken Unknown] carvedilol 6.25 mg tablet 6.25 mg PO BID #180 tab 10/18/19 [Last Taken Unknown] ramipril 10 mg capsule 10 mg PO BID #180 cap 10/18/19 [Last Taken Unknown] hydrochlorothiazide 25 mg tablet 25 mg PO DAILY #90 tab 11/06/19 [Last Taken Unknown] meloxicam 15 mg tablet 15 mg PO DAILY #90 tab 11/06/19 [Last Taken Unknown] montelukast 10 mg tablet 10 mg PO DAILY #90 tab 11/06/19 [Last Taken Unknown] amlodipine 5 mg tablet 5 mg PO DAILY #90 tab 12/02/19 [Last Taken Unknown] atorvastatin 20 mg tablet 20 mg PO HS #90 tab 12/02/19 [Last Taken Unknown] cetirizine 10 mg tablet 10 mg PO HS #90 tab 04/17/20 [Last Taken Unknown] Ascorbic Acid [Vitamin C] 250 mg PO DAILY 05/08/20 [Last Taken Unknown] Cholecalciferol (Vitamin D3) [Vitamin D3] 250 mcg PO DAILY 05/08/20 [Last Taken Unknown] Zinc Gluconate [Zinc] 50 mg PO DAILY 05/08/20 [Last Taken Unknown] Exam - Exam Vital Signs: Vital Signs - Last Taken Temp 37.6 C 05/08/20 12:00 Pulse 103 H 03/05/21 12:45 Resp 12 05/08/20 12:45 BP 146/81 H 05/08/20 12:45 Pulse Ox 99 05/08/20 12:45 Constitutional: Present: Alert, Cooperative, Moderate distress, Young Respiratory: Present: lungs clear, normal breath sounds Cardiovascular/Chest: Present: tachycardia Abdomen: Present: soft, nontender Skin Exam: Present: other - patchy erythema of right anterior and medial lower leg. no erythema of right knee Eye contact: Present: good eye contact Diagnostic Studies: Abnormal Lab Results 05/08/20 05/08/20 05/08/20 Range/Units 07:46 08:00 08:00 WBC 18.5 H (4.0-10.5) K/mm3 RBC 4.56 L (4.7-6.0) M/mm3 Hgb 13.4 L (13.5-18.0) gm/dL MCHC 31.7 L (32-36) g/dl MPV 12.0 H (8-11.3) fl Immature Gran # (Auto) 0.06 H (0.000-0.0310) K/mm3 Neutrophils % 88.7 H (42-75.0) % Lymphocytes % 4.3 L (20-51) % Neutrophils # 16.4 H (1.3-6.0) K/mm3 Lymphocytes # 0.79 L (1.5-3.5) k/mm3 Monocytes # 1.2 H (0.0-1.0) k/mm3 ESR (0-10) mm/hr Anion Gap 14.2 H (6.8-13.8) mmol/L Creatinine 1.53 H D (0.4-1.4) mg/dL Est GFR (Non-Af Amer) 50 L D (60-130) mL/min Random Glucose 111 H (70-110) mg/dL Uric Acid 8.0 H (2.6-7.2) mg/dL C-Reactive Prot, Quant (0.0-0.9) mg/dL B-Natriuretic Peptide (5-175) pg/mL Total Protein 8.6 H (6.2-8.2) gm/dL Fluid WBC (0-1000) /uL Fluid RBC (0-1000) /uL 05/08/20 05/08/2021 Range/Units 08:00 08:00 09:30 WBC (4.0-10.5) K/mm3 RBC (4.7-6.0) M/mm3 Hgb (13.5-18.0) gm/dL MCHC (32-36) g/dl MPV (8-11.3) fl Immature Gran # (Auto) (0.000-0.0310) K/mm3 Neutrophils % (42-75.0) % Lymphocytes % (20-51) % Neutrophils # (1.3-6.0) K/mm3 Lymphocytes # (1.5-3.5) k/mm3 Monocytes # (0.0-1.0) k/mm3 ESR 61 H (0-10) mm/hr Anion Gap (6.8-13.8) mmol/L Creatinine (0.4-1.4) mg/dL Est GFR (Non-Af Amer) (60-130) mL/min Random Glucose (70-110) mg/dL Uric Acid (2.6-7.2) mg/dL C-Reactive Prot, Quant 15.0 H (0.0-0.9) mg/dL B-Natriuretic Peptide 719 H (5-175) pg/mL Total Protein (6.2-8.2) gm/dL Fluid WBC (0-1000) /uL Fluid RBC (0-1000) /uL 05/08/20 Range/Units 10:30 WBC (4.0-10.5) K/mm3 RBC (4.7-6.0) M/mm3 Hgb (13.5-18.0) gm/dL MCHC (32-36) g/dl MPV (8-11.3) fl Immature Gran # (Auto) (0.000-0.0310) K/mm3 Neutrophils % (42-75.0) % Lymphocytes % (20-51) % Neutrophils # (1.3-6.0) K/mm3 Lymphocytes # (1.5-3.5) k/mm3 Monocytes # (0.0-1.0) k/mm3 ESR (0-10) mm/hr Anion Gap (6.8-13.8) mmol/L Creatinine (0.4-1.4) mg/dL Est GFR (Non-Af Amer) (60-130) mL/min Random Glucose (70-110) mg/dL Uric Acid (2.6-7.2) mg/dL C-Reactive Prot, Quant (0.0-0.9) mg/dL B-Natriuretic Peptide (5-175) pg/mL Total Protein (6.2-8.2) gm/dL Fluid WBC 140188 H (0-1000) /uL Fluid RBC Greater than 1000.0 H (0-1000) /uL Laboratory Results WBC 18.5 K/mm3 (4.0-10.5) H 05/08/20 08:00 RBC 4.56 M/mm3 (4.7-6.0) L 05/08/20 08:00 Hgb 13.4 gm/dL (13.5-18.0) L 05/08/20 08:00 Hct 42.3 % (42.0-52.0) 05/08/20 08:00 MCV 92.8 fl (78-100) 05/08/20 08:00 MCH 29.4 pg (27-31) 05/08/20 08:00 MCHC 31.7 g/dl (32-36) L 05/08/20 08:00 RDW 14.0 % (11.5-14.0) 05/08/20 08:00 Plt Count 159 K/mm3 (150-450) 05/08/20 08:00 MPV 12.0 fl (8-11.3) H 05/08/20 08:00 Immature Gran % (Auto) 0.30 % (0.001-0.429) 05/08/20 08:00 Immature Gran # (Auto) 0.06 K/mm3 (0.000-0.0310) H 05/08/20 08:00 Neutrophils % 88.7 % (42-75.0) H 05/08/20 08:00 Lymphocytes % 4.3 % (20-51) L 05/08/20 08:00 Monocytes % 6.6 % (0.0-9) 05/08/20 08:00 Eosinophils % 0.0 % (0.0-3.0) 05/08/20 08:00 Basophils % 0.1 % (0.0-1.0) 05/08/20 08:00 Nucleated RBC % 0.0 k/mm3 (0-1) 05/08/20 08:00 Neutrophils # 16.4 K/mm3 (1.3-6.0) H 05/08/20 08:00 Lymphocytes # 0.79 k/mm3 (1.5-3.5) L 05/08/20 08:00 Monocytes # 1.2 k/mm3 (0.0-1.0) H 05/08/20 08:00 Eosinophils # 0.0 k/mm3 (0.0-0.7) 05/08/20 08:00 Absolute Basophils 0.0 k/mm3 (0.0-0.1) 05/08/20 08:00 ESR 61 mm/hr (0-10) H 05/08/20 08:00 PT 10.7 Seconds (9.1-10.7) 05/08/20 08:00 INR (Anticoag Therapy) 1.03 INR (0.92-1.08) 05/08/20 08:00 Sodium 135 mmol/L (132-142) 05/08/20 08:00 Plasma Sodium 135 mmol/L (130-142) 05/08/20 08:00 Potassium 3.8 mmol/L (3.4-4.6) 05/08/20 08:00 Chloride 99 mmol/L (97-106) 05/08/20 08:00 Carbon Dioxide 25.6 mmol/L (24-32.6) 05/08/20 08:00 Anion Gap 14.2 mmol/L (6.8-13.8) H 05/08/20 08:00 BUN 19 mg/dL (6-23) 05/08/20 08:00 Creatinine 1.53 mg/dL (0.4-1.4) H D 05/08/20 08:00 Est GFR (Non-Af Amer) 50 mL/min (60-130) L D 05/08/20 08:00 BUN/Creatinine Ratio 12.4 (9.0-21.6) 05/08/20 08:00 Random Glucose 111 mg/dL (70-110) H 05/08/20 08:00 Lactic Acid, Venous 1.7 mmol/L (0.4-2.0) 05/08/20 08:00 Uric Acid 8.0 mg/dL (2.6-7.2) H 05/08/20 07:46 Calcium 9.2 mg/dL (7.9-10.9) 05/08/20 08:00 Calcium Adj for Albumin 9.2 mg/dL (8.4-10.2) 05/08/20 08:00 Total Bilirubin 1.0 mg/dL (0.0-1.1) 05/08/20 08:00 AST 18 U/L (0-48) 05/08/20 08:00 ALT 28 U/L (19-67) 05/08/20 08:00 Alkaline Phosphatase 85 U/L (50-170) 05/08/20 08:00 Troponin I Less than 0.017 ng/mL (0.00-0.10) 05/08/20 08:00 C-Reactive Prot, Quant 15.0 mg/dL (0.0-0.9) H 05/08/20 08:00 B-Natriuretic Peptide 719 pg/mL (5-175) H 05/08/20 09:30 Total Protein 8.6 gm/dL (6.2-8.2) H 05/08/20 08:00 Albumin 3.6 gm/dl (3.4-5.0) 05/08/20 08:00 Fluid WBC 021419 /uL (0-1000) H 05/08/20 10:30 Fluid RBC Greater than 1000.0 /uL (0-1000) H 05/08/20 10:30 SARS-CoV-2 (PCR) Not detected (NotDetected) 05/08/20 09:15 Assessment/Plan - Narrative Narrative: Will start abx SONNY after he goes to the OR. With his source of infection, elevated HR, and one elevated respiratory rate, he meets sepsis criteria. He does not appear septic on exam, however. His discomfort appeared to be from his severe pain. He only had one elevated respiratory rate. He was given a one L bolus of fluid in the ED. Will continue 0.5 mg iv dilaudid q1h, at least until his surgery. Discussed his case with orthopedist, who will be starting vanc and zosyn post op. He will need a PICC line for 6 weeks of IV antibiotics. Using the NSQIP surgical risk calculator, he is average or below average risk for various complications. OK to proceed with surgery. Will need anticoagulation post op. - Assessment/Plan (1) Septic arthritis Problem: Acute Qualifiers: Septic arthritis location: knee Septic arthritis organism: due to unspecified organism Laterality: right Qualified Code(s): M00.9 - Pyogenic arthritis, unspecified (2) Acute renal injury Problem: Acute (3) 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 (4) CAD (coronary artery disease) Problem: Chronic Qualifiers: Coronary Disease-Associated Artery/Lesion type: unspecified vessel or lesion type [place] vs. transplanted heart: [place] heart Associated angina: angina presence unspecified Qualified Code(s): I25.10 - Atherosclerotic heart disease of [place] coronary artery without angina pectoris (5) Hypertension Problem: Chronic Qualifiers: Hypertension type: essential hypertension Qualified Code(s): I10 - Essential (primary) hypertension (6) Hyperlipidemia Problem: Chronic Qualifiers: Hyperlipidemia type: unspecified Qualified Code(s): E78.5 - Hyperlipidemia, unspecified (7) Hypothyroid Problem: Chronic Qualifiers: Hypothyroidism type: unspecified Qualified Code(s): E03.9 - Hypothyroidism, unspecified (8) History of DVT (deep vein thrombosis) Problem: Chronic (9) Rheumatoid arthritis Problem: Chronic
[2020-05-08 13:56] LABS: Body Fluid Appearance CLOUDY (CLEAR)
[2020-05-08 13:57] LABS: Body Fluid Color AMBER (COLORLESS)
--- NOTE | 2020-05-08 14:36 | ANES ---
Anesthesia Pre Procedure Eval Vitals/Labs: Last Vital Signs Temp 37.0 C 05/08/20 13:01 Pulse 101 H 05/08/20 13:31 Resp 22 H 05/08/20 13:01 BP 150/79 H 05/08/20 13:01 Pulse Ox 99 05/08/20 13:01 HOME MEDICATIONS Aspirin 325 mg PO DAILY 10/19/12 [Last Taken 06/18/18 04:30] Acetaminophen [Tylenol] 500 mg PO Q4H PRN MDD 8 tab 07/15/16 [Last Taken Unknown] Multivitamins [Multivitamin Neelam] 1 cap PO DAILY 07/15/16 [Last Taken 08/02/16 20:00] [place]-3/Dha/Epa/Fish Oil [Fish Oil 500 mg Softgel] 1 ea PO DAILY 07/15/16 [Last Taken 06/18/18 04:30] omeprazole magnesium 20 mg capsule,delayed release 20 mg PO DAILY 01/30/18 [Last Taken 06/18/18 04:30] fluticasone propionate 50 mcg/actuation nasal spray,suspension 2 spray KYLEIGH DAILY #18.2 ml 02/21/19 [Last Taken Unknown] nitroglycerin 0.4 mg sublingual tablet 0.4 mg SL Q5M PRN #20 tab 08/19/19 [Last Taken Unknown] carvedilol 6.25 mg tablet 6.25 mg PO BID #180 tab 10/18/19 [Last Taken Unknown] ramipril 10 mg capsule 10 mg PO BID #180 cap 10/18/19 [Last Taken Unknown] hydrochlorothiazide 25 mg tablet 25 mg PO DAILY #90 tab 11/06/19 [Last Taken Unknown] meloxicam 15 mg tablet 15 mg PO DAILY #90 tab 11/06/19 [Last Taken Unknown] montelukast 10 mg tablet 10 mg PO DAILY #90 tab 11/06/19 [Last Taken Unknown] amlodipine 5 mg tablet 5 mg PO DAILY #90 tab 12/02/19 [Last Taken Unknown] atorvastatin 20 mg tablet 20 mg PO HS #90 tab 12/02/19 [Last Taken Unknown] cetirizine 10 mg tablet 10 mg PO HS #90 tab 04/17/20 [Last Taken Unknown] Ascorbic Acid [Vitamin C] 250 mg PO DAILY 05/08/20 [Last Taken Unknown] Cholecalciferol (Vitamin D3) [Vitamin D3] 250 mcg PO DAILY 05/08/20 [Last Taken Unknown] Zinc Gluconate [Zinc] 50 mg PO DAILY 05/08/20 [Last Taken Unknown] Allergies/Adverse Reactions: Allergies Allergy/AdvReac Type Severity Reaction Status Date / Time Sulfa (Sulfonamide Allergy Mild Hives Verified 05/08/20 12:52 Antibiotics) azithromycin [From Zithromax] AdvReac Mild RASH Verified 05/08/20 12:52 clarithromycin AdvReac Mild RASH Verified 05/08/20 12:52 [From Biaxin XL] - Planned Procedure Planned Procedure: Septic arthritis r knee Medication List Reviewed:: Yes Allergies Verified: Yes Medical History (Last Reviewed 05/08/20 @ 14:35 by Ervin Diaz CRNA) CAD (coronary artery disease) Onset Date: Unknown GERD (gastroesophageal reflux disease) Onset Date: Unknown Hyperlipidemia Onset Date: Unknown Hypertension Onset Date: Unknown Hypothyroidism Onset Date: 07/25/11 Hypovitaminosis D Onset Date: 08/01/17 Insomnia Onset Date: 10/18/13 Loss of smell Onset Date: 09/20/14 Rule out electrolyte imbalance; Prevacid was started; pt. 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 Recheck 10 yrs. History of coronary angiogram Onset Date: 08/25/09 History of elbow surgery Onset Date: Unknown [facility]-removal of left elbow bursa History of tonsillectomy Onset Date: ~1968 History of total knee arthroplasty Onset Date: 06/11/12 [facility]-06/13/11 RTK. 06/11/12-LTK. [facility]-08/03/16 rev rt tka w/ revision of scar. Status post PICC central line placement Onset Date: 07/07/11 stent Onset Date: 08/25/09 Family History (Last Reviewed 05/08/20 @ 14:35 by Ervin Diaz CRNA) Mother , age 72-dementia ([place] disease) Hypertension Seizure disorder Father , age 86-stroke Heart disease CVA (cerebral vascular accident) Brother Hypertension Heart disease Sister Hypertension Heart disease [place] disease Grandfather Heart disease Grandmother Heart disease - Family Anesthesia History Family History:: no untoward family reactions to anesthesia - Airway/Neck/Teeth Within Normal Limits:: Yes Teeth Condition: intact Neck Exam: full range of motion Mallampatti Score: 2 Thyromental (T-M) distance: > 6 cm Mandibulo Hyoid distance: > 3 cm - Respiratory Respiratory Physical: lungs clear Smoking Status: Never smoker Sleep Apnea currently treated: No Sleep Apnea by current assessment: No - Cardiovascular Cardiac History: [place], CAD, hypertension, hyperlipidemia Tolerate Activity: Fair Heart Sounds: S1 & S2, Regular - Gastrointestinal NPO since: [place] - Anesthesia Assessment and Plan ASA Class: PS, III Anesthesia Type Plan: Spinal Planned difficult intubation/equipment available: No
[2020-05-08] MEDS ORDERED: BUPIVACAINE HCL/PF 10 ML VIAL ONE (15:55)
[2020-05-08] MEDS ORDERED: LIDOCAINE HCL 20 ML VIAL ONE (15:55)
[2020-05-08] MEDS ORDERED: PROPOFOL VIAL IV ONE (15:56)
[2020-05-08] MEDS ORDERED: ISOPROPYL ALCOHOL 480 APPL BTL MC ONE (16:03)
[2020-05-08] MEDS ORDERED: ceFAZolin SODIUM 1 GM VIAL ONE (16:03)
[2020-05-08] MEDS ORDERED: MIDAZOLAM HCL/PF 5 MG/ML VIAL ONE (16:06)
[2020-05-08] MEDS ORDERED: ONDANSETRON HCL/PF 2 MG/ML VIAL IV PRN (18:26)
[2020-05-08] MEDS ORDERED: ZOLPIDEM TARTRATE 5 MG TABLET PO PRN (18:26)
[2020-05-08] MEDS ORDERED: ACETAMINOPHEN 500 MG TABLET PO PRN (18:26)
[2020-05-08] MEDS ORDERED: DEXTROSE 5%-LACTATED RINGERS 1,000 ML IV PRN (18:26)
[2020-05-08] MEDS ORDERED: MAG HYDROX/ALUMINUM HYD/SIMETH 30 ML UDC PO PRN (18:26)
[2020-05-08] MEDS ORDERED: diphenhydrAMINE HCL 50 MG/ML VIAL IV PRN (18:26)
--- NOTE | 2020-05-08 18:26 | OR ---
Operative Report - Dictated Report Narrative: Date: 05/08/2020 Preoperative diagnosis: Septic right revision total knee arthroplasty. Postoperative diagnosis: Septic right revision total knee arthroplasty. Procedure: Open irrigation and debridement with exchange of polyethylene right total knee arthroplasty. Surgeon: Danny De La Torre M.D. Meeting Coordinator: None Anesthesia: Spinal Complications: None Specimens: Bone. Estimated blood loss: Minimal. Tourniquet time: 69 Minutes at 300 millimeters of mercury. Retained implants: Depuy TC 3 rotating platform posterior stabilized polyethylene insert 12.5 mm Indications: Mr. Garcia is a 59-year-old gentleman who developed acute increased right knee pain over the last 2 to 3 days without any known infection. He underwent revision total knee arthroplasty for aseptic loosening 4 years ago. He states he was doing well up until this last week. He was seen in the [facility] department and had a work-up for infection was found to have noted elevated inflammatory markers. An aspirate was positive for 145,000 white cells. Initial Gram stain was gram-positive cocci in pairs. This case was discussed with Dr. Pool's resident at the [facility] in order to establish a continuity of care if needed but as well as to request recommendations. At their recommendation, and irrigation and debridement with exchange of polyethylene with the plan for postoperative antibiotics was discussed. The risks, benefits, and alternatives were discussed in clinic. The risks of , blood clots, bleeding, infection, nerve/tendon blood vessel/ injury, intraoperative fracture, postoperative limited range of motion, persistent pain, failure of components, and need for additional procedures. Patient wished to proceed consent was obtained after answering all questions. Procedure: After marking the correct extremity on the floor, the patient was taken to the operating room. A timeout was performed. IV antibiotics consisting of vancomycin and Ancef were administered after obtaining cultures. A spinal anesthetic was induced by anesthesia, per my request, on the operative table with all bony prominences well-padded. A bump was placed under the operative side buttock. SCDs and AYDIN hose were utilized on the nonoperative leg. A well-padded tourniquet was applied to the operative thigh. The operative leg was then pre-scrubbed with alcohol, prepped, and draped in a standard sterile fashion. After elevating the extremity , the tourniquet was inflated. His previous incision was excised and sharp dissection was carried through the skin down to the joint capsule. There were no retained sutures. There was no drainage through the capsule. Upon entering the joint through medial parapatellar incision, a significant volume of thick purulent appearing fluid was encountered. This was cultured with both an aspirate and a swab. A thorough synovectomy and soft tissue debridement using a combination of scalpel and cautery were utilized in order to remove all the thickened and offending tissues. The previous polyethylene insert was removed. It showed no signs of wear or damage. The implants were noted to be stable to gross evaluation. The knee was thoroughly debrided both in the posterior aspects as well as the medial lateral gutters and throughout the superior and inferior aspects. The tissue appeared thickened and inflamed but there was no significant nidus or signs of gross osteomyelitis. We then placed 9 L of irrigant through the knee. Once we felt that we adequately debrided the knee as well as irrigated, the new polyethylene was placed. The joint capsule was closed with interrupted 0 PDS suture and #1 strata fix barbed suture. Subcutaneous tissue was closed with 0 PDS suture. The skin was closed with 3-0 Monocryl and germaine. A large Hemovac drain double loaded was placed exiting the superior lateral and medial joint. This was placed to suction. Tourniquet was deflated and there is no excessive bleeding. 4 x 4's, Sof-Rol, and a full leg Mychal wrap were applied. All sponge, needle, blade, and instrument counts were correct prior to closing the wounds. Postoperative condition: The patient was awoken and transferred to the postanesthesia care unit in stable condition.
[2020-05-08] MEDS ORDERED: VANCOMYCIN/WATER FOR INJ (PEG) 2 GM/400 ML BAG IV SCH (18:30)
[2020-05-08] MEDS ORDERED: HYDROmorphone HCL 2 MG/ML VIAL ONE (18:41)
[2020-05-08] MEDS ORDERED: KETOROLAC TROMETHAMINE 30 MG/ML VIAL ONE (18:46)
--- NOTE | 2020-05-08 19:13 | ANES ---
Post Anesthesia Discharge - Transfer of Care Transfer of Care handoff given to nurse: Yes - Discharge from PACU Discharge from PACU when meets criteria: Yes
--- NOTE | 2020-05-08 19:13 | ANES ---
Post Anesthesia Assessment - Vital Signs Vitals: Last Vital Signs Temp 37.5 C 05/08/20 19:00 Pulse 95 05/08/20 19:00 Resp 12 05/08/20 19:00 BP 134/74 05/08/20 19:00 Pulse Ox 94 05/08/20 19:00 Airway Patency: Normal - Mental Status Level Of Consciousness: Awake - Pain Level Pain Score: 4 - N/V Assessment Nausea/Vomiting Presence: None Dehydration:: No
--- NOTE | 2020-05-08 19:16 | ANES ---
Anesthesia Procedure Note Procedure Note: ANESTHESIA PROCEDURE NOTE Date of procedure: 05/08/2020. Time of procedure: 1829. Performed by: Jose David Diaz CRNA Director Of Rehabilitative Services: None . Preprocedure diagnosis: Septic right knee. Status post right total knee arthroplasty. Post procedure diagnosis: Same. Procedure: PICC line insertion Indications: Need for long-term IV antibiotics. Findings: Patient's right antecubital area was prepped and draped sterilely. Dual-lumen PICC line was advanced and placed without difficulty. Both lumens flush and aspirate easily. Will check x-ray in the PACU to confirm catheter tip placement. EBL: Minimal. Fluids: N/A. Specimen: N/A. Post procedure condition: The patient tolerated the procedure well. No complications were noted. Thank you for this consultation Jose David Diaz CRNA
[2020-05-08] MEDS: PIPERACILLIN SODIUM/TAZOBACTAM 3.375 GM in DEXTROSE 5 % IN WATER 100 ML IV SCH ×2 (20:34)
[2020-05-08] MEDS: SENNOSIDES/DOCUSATE SODIUM 1 TAB TABLET PO SCH (21:23)
[2020-05-08] MEDS: ASPIRIN 81 MG TABLET.DR PO SCH (21:23)
[2020-05-09] MEDS: HYDROmorphone HCL 1 MG/ML DISP.SYRIN IV PRN ×5 (00:28→10:42)
[2020-05-09] MEDS: PIPERACILLIN SODIUM/TAZOBACTAM 3.375 GM in DEXTROSE 5 % IN WATER 100 ML IV SCH ×6 (04:23→19:27)
[2020-05-09 08:15] LABS: Hematocrit 35.1 % (42.0-52.0); Hemoglobin 11.2 gm/dL (13.5-18.0); Mean Cell Volume 93.4 fl (78-100); Mean Corpuscular Hemoglobin 29.8 pg (27-31); Mean Corpuscular Hgb Conc 31.9 g/dl (32-36); Mean Platelet Volume 11.8 fl (8-11.3); Platelet Count 127 K/mm3 (150-450); Red Blood Count 3.76 M/mm3 (4.7-6.0); Red Cell Distribution Width 14.3 % (11.5-14.0); White Blood Count 14.8 K/mm3 (4.0-10.5)
[2020-05-09 08:22] LABS: Total Cells Counted 100
[2020-05-09] MEDS: ASPIRIN 81 MG TABLET.DR PO SCH (08:22)
[2020-05-09] MEDS: oxyCODONE HCL/ACETAMINOPHEN 1 TAB TABLET PO PRN ×3 (08:22→18:52)
[2020-05-09 08:32] LABS: Albumin * 2.8 gm/dl (3.4-5.0); Anion Gap 11.2 mmol/L (6.8-13.8); BUN/Creatinine Ratio 14.9 (9.0-21.6); Ca. Corrected For Albumin 9.1 mg/dL (8.4-10.2); Calcium * 8.5 mg/dL (7.9-10.9); Carbon Dioxide 27.6 mmol/L (24-32.6); Potassium 3.8 mmol/L (3.4-4.6); Total Protein 7.2 gm/dL (6.2-8.2)
[2020-05-09 08:44] LABS: Band 2 % (0-2.0); Lymphocyte 11 % (20-51); Monocyte 8 % (0-9); Neutrophil 79 % (42-75); Neutrophil # 11.7 K/mm3 (1.3-6.0); Platelet Estimate Decreased (NORMAL)
[2020-05-09 08:45] LABS: RBC Morphology Normal (NORMAL)
--- NOTE | 2020-05-09 10:37 | ANES ---
Anesthesia Procedure Note Procedure Note: ANESTHESIA PROCEDURE NOTE Date of procedure: 05/09/2020. Time of procedure: 1010. Performed by: Jose David Diaz CRNA Smoke Chaser: None . Preprocedure diagnosis: Septic right knee. Status post right total knee arthroplasty. Post procedure diagnosis: Same. Procedure: Reinsertion of PICC line Indications: Displaced right AC PICC line. Continued need for long-term IV antibiotic therapy. Findings: Right antecubital PICC line displaced with approximately 20 cm outside of the skin. PICC line removed. Patient's left antecubital was prepped and draped sterilely. Dual-lumen PICC line was inserted without difficulty. Both ports flush and aspirate easily. Will order chest x-ray to confirm catheter placement EBL: Minimal. Fluids: N/A. Specimen: N/A. Post procedure condition: The patient tolerated the procedure well. No complications were noted. Thank you for this consultation Jose David Diaz CRNA
--- NOTE | 2020-05-09 11:09 | PN ---
Subjective - Date and Time Seen Date: 05/09/20 Time: 11:08 Subjective Narrative: POD #1 replacement of his right prosthetic knee for septic arthritis. His oxygen decreased overnight after dilaudid administration. He is on room air currently, and denies new concerns. Has not been up yet. His PICC line became dislodged, and was replaced this morning. Objective - Review of Systems Generalized/Overall Review: Denies: Fever Respiratory: Denies: Shortness of Breath Cardiac: Denies: Chest Pain Abdominal: Reports: No Symptoms Reported Genitourinary Symptoms: Reports: No Symptoms Reported Musculoskeletal Complaints: Reports: Joint Pain - right knee - Vitals Vitals: Last Vital Signs Temp 36.8 C 05/09/20 11:05 Pulse 87 05/09/20 11:05 Resp 18 05/09/20 11:05 BP 121/72 05/09/20 11:05 Pulse Ox 94 05/09/20 11:05 - Abnormal Lab Findings Abnormal Lab Findings: Abnormal Lab Results 05/08/20 05/09/20 05/09/20 Range/Units 10:30 07:51 07:51 WBC 14.8 H (4.0-10.5) K/mm3 RBC 3.76 L (4.7-6.0) M/mm3 Hgb 11.2 L (13.5-18.0) gm/dL Hct 35.1 L (42.0-52.0) % MCHC 31.9 L (32-36) g/dl RDW 14.3 H (11.5-14.0) % Plt Count 127 L (150-450) K/mm3 MPV 11.8 H (8-11.3) fl Neutrophils % (Manual) 79 H (42-75) % Lymphocytes % (Manual) 11 L (20-51) % Neutrophils # (Manual) 11.7 H (1.3-6.0) K/mm3 Monocytes # (Manual) 1.2 H (0.0-1.0) k/mm3 Platelet Estimate Decreased L (NORMAL) Creatinine 1.48 H (0.4-1.4) mg/dL Est GFR (Non-Af Amer) 52 L (60-130) mL/min Albumin 2.8 L (3.4-5.0) gm/dl Fluid WBC 576501 H (0-1000) /uL Fluid RBC Greater than 1000.0 H (0-1000) /uL - Exam Constitutional: Present: Alert, Cooperative, No distress Respiratory: Present: lungs clear, normal breath sounds, no respiratory distress Cardiovascular/Chest: Present: regular rate, rhythm Abdomen: Present: soft, nontender Extremity: Present: other - right lower leg in AUDIE bandage from thigh to foot, with drain in place. Absent: lower extremity edema Neurologic: Present: normal mood/affect Eye contact: Present: cooperative, good eye contact Assessment/Plan Plan Narrative: POD #1 right open irrigation and debridement with exchange of polyethylene right total knee arthroplasty. This is his 3rd replacement of that knee joint. It was replaced the second time for loosening of the hardware. He is currently on vanc and zosyn. Culture from joint aspirate is growing group B strep agalactiae. He will receive IV abx for 6 weeks, and will adjust abx based on culture sensitivities. These should result tomorrow. Will transition from IV pain meds to po, as his pain improves. Anticipate DC in greater than 24 hours. 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 transplanted heart: [place] heart Associated angina: angina presence unspecified Qualified Code(s): I25.10 - Atherosclerotic heart disease of [place] coronary artery without angina pectoris (5) Hypertension Problem: Chronic Qualifiers: Hypertension type: essential hypertension Qualified Code(s): I10 - Essential (primary) hypertension (6) Hyperlipidemia Problem: Chronic Qualifiers: Hyperlipidemia type: unspecified Qualified Code(s): E78.5 - Hyperlipidemia, unspecified (7) Hypothyroid Problem: Chronic Qualifiers: Hypothyroidism type: unspecified Qualified Code(s): E03.9 - Hypothyroidism, unspecified (8) History of DVT (deep vein thrombosis) Problem: Chronic (9) Rheumatoid arthritis Problem: Chronic
--- NOTE | 2020-05-09 11:36 | PN ---
Subjective - Date and Time Seen Date: 05/09/20 Time: 11:35 Subjective Narrative: Subjective: Reports improved pain. Was able to move some in the room with therapy. Pain is well-controlled. Voiding without any complications. Tolerating by mouth intake. Denies any nausea or vomiting. Denies calf pain. Slept well. Physical exam: Alert and oriented to person, place and time Right lower extremity: Palpable dorsalis pedis pulse. Sensation grossly intact to light touch. Dressings clean and dry. Able to flex and extend ankle and toes. No excessive drainage. Calf and thigh are soft and nontender. Assessment: Postop day 1 status post irrigation and debridement with polyethylene exchange of right knee septic arthroplasty. Plan: Due to the need for pain control, post-operative limited mobility, protection of the surgical site and joint, monitoring of the wound, and the management of chronic medical conditions, heat requires continued inpatient care. Continue with activity as tolerated. Continue with anticoagulation. Cultures are pending but the plan will be to continue with IV antibiotics for 6 weeks based on sensitivities. Continue drain. Pain control with goal to rely on oral medications. Continue bowel regimen. Will need 6 weeks with walker or assitive device to protect joint while ambulating during the recovery process. Discharge planning. Objective - Vitals Vitals: Last Vital Signs Temp 36.8 C 05/09/20 11:05 Pulse 87 05/09/20 11:05 Resp 18 05/09/20 11:05 BP 121/72 05/09/20 11:05 Pulse Ox 94 05/09/20 11:05 - Abnormal Lab Findings Abnormal Lab Findings: Abnormal Lab Results 05/08/20 05/09/20 05/09/20 Range/Units 10:30 07:51 07:51 WBC 14.8 H (4.0-10.5) K/mm3 RBC 3.76 L (4.7-6.0) M/mm3 Hgb 11.2 L (13.5-18.0) gm/dL Hct 35.1 L (42.0-52.0) % MCHC 31.9 L (32-36) g/dl RDW 14.3 H (11.5-14.0) % Plt Count 127 L (150-450) K/mm3 MPV 11.8 H (8-11.3) fl Neutrophils % (Manual) 79 H (42-75) % Lymphocytes % (Manual) 11 L (20-51) % Neutrophils # (Manual) 11.7 H (1.3-6.0) K/mm3 Monocytes # (Manual) 1.2 H (0.0-1.0) k/mm3 Platelet Estimate Decreased L (NORMAL) Creatinine 1.48 H (0.4-1.4) mg/dL Est GFR (Non-Af Amer) 52 L (60-130) mL/min Albumin 2.8 L (3.4-5.0) gm/dl Fluid WBC [id number] H (0-1000) /uL Fluid RBC Greater than 1000.0 H (0-1000) /uL Assessment/Plan - Problems/Diagnosis (1) Septic arthritis Problem: Acute Qualifiers: Septic arthritis location: knee Septic arthritis organism: due to unspecified organism Laterality: right Qualified Code(s): M00.9 - Pyogenic arthritis, unspecified (2) 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
[2020-05-09] MEDS: VANCOMYCIN/WATER FOR INJ (PEG) 1 GM/200 ML BAG IV SCH ×2 (13:36→23:36)
[2020-05-09] MEDS: ASPIRIN 325 MG TABLET.DR PO SCH (21:08)
[2020-05-09] MEDS: SENNOSIDES/DOCUSATE SODIUM 1 TAB TABLET PO SCH (21:08)
[2020-05-10] MEDS ORDERED: METOPROLOL TARTRATE 25 MG TABLET PO SCH (01:45)
[2020-05-10] MEDS: PIPERACILLIN SODIUM/TAZOBACTAM 3.375 GM in DEXTROSE 5 % IN WATER 100 ML IV SCH ×6 (04:15→19:49)
[2020-05-10] MEDS: oxyCODONE HCL/ACETAMINOPHEN 1 TAB TABLET PO PRN ×5 (05:37→23:52)
[2020-05-10 08:08] LABS: Hematocrit 33.1 % (42.0-52.0); Hemoglobin 10.6 gm/dL (13.5-18.0); Mean Cell Volume 91.9 fl (78-100); Mean Corpuscular Hemoglobin 29.4 pg (27-31); Mean Platelet Volume 11.8 fl (8-11.3); Neutrophil % 80.5 % (42-75.0); Platelet Count 135 K/mm3 (150-450); Red Cell Distribution Width 14.3 % (11.5-14.0); White Blood Count 13.7 K/mm3 (4.0-10.5)
[2020-05-10] MEDS: amLODIPine BESYLATE 5 MG TABLET PO SCH (08:12)
[2020-05-10] MEDS: RAMIPRIL 2.5 MG CAPSULE PO SCH ×2 (08:12→20:58)
[2020-05-10] MEDS: CARVEDILOL 6.25 MG TABLET PO SCH ×2 (08:12→21:02)
[2020-05-10] MEDS: ASPIRIN 325 MG TABLET.DR PO SCH ×2 (08:14→20:57)
[2020-05-10 08:29] LABS: Albumin * 2.6 gm/dl (3.4-5.0); BUN/Creatinine Ratio 17.6 (9.0-21.6); Bilirubin, Total 0.6 mg/dL (0.0-1.1); Ca. Corrected For Albumin 9.1 mg/dL (8.4-10.2); Calcium * 8.3 mg/dL (7.9-10.9); Carbon Dioxide 27.8 mmol/L (24-32.6); Potassium 3.8 mmol/L (3.4-4.6); Total Protein 6.4 gm/dL (6.2-8.2)
--- NOTE | 2020-05-10 10:29 | PN ---
Subjective - Date and Time Seen Date: 05/10/20 Time: 10:40 Subjective Narrative: He has had a couple of episodes of sweating after taking the pain medicine. Has required the assistance of 2 to ambulate. Feels like his pain is better. His heart rhythm was afib overnight, and his home carvedilol was restarted. Is in sinus rhythm this morning. Objective - Review of Systems Generalized/Overall Review: Denies: Fever Respiratory: Denies: Cough, Shortness of Breath Cardiac: Denies: Chest Pain, Edema Abdominal: Reports: No Symptoms Reported Genitourinary Symptoms: Reports: No Symptoms Reported Musculoskeletal Complaints: Reports: Joint Pain - right knee - Vitals Vitals: Last Vital Signs Temp 36.1 C 05/10/20 10:00 Pulse 82 05/10/20 10:00 Resp 18 05/10/20 10:00 BP 103/59 05/10/20 10:00 Pulse Ox 93 05/10/20 10:00 - Abnormal Lab Findings Abnormal Lab Findings: Abnormal Lab Results 05/10/20 05/10/20 Range/Units 07:52 07:52 WBC 13.7 H (4.0-10.5) K/mm3 RBC 3.60 L (4.7-6.0) M/mm3 Hgb 10.6 L (13.5-18.0) gm/dL Hct 33.1 L (42.0-52.0) % RDW 14.3 H (11.5-14.0) % Plt Count 135 L (150-450) K/mm3 MPV 11.8 H (8-11.3) fl Immature Gran % (Auto) 0.60 H (0.001-0.429) % Immature Gran # (Auto) 0.08 H (0.000-0.0310) K/mm3 Neutrophils % 80.5 H (42-75.0) % Lymphocytes % 8.6 L (20-51) % Neutrophils # 11.0 H (1.3-6.0) K/mm3 Lymphocytes # 1.17 L (1.5-3.5) k/mm3 Monocytes # 1.2 H (0.0-1.0) k/mm3 BUN 26 H (6-23) mg/dL Creatinine 1.48 H (0.4-1.4) mg/dL Est GFR (Non-Af Amer) 52 L (60-130) mL/min Albumin 2.6 L (3.4-5.0) gm/dl - Exam Constitutional: Present: Alert, Cooperative, No distress Respiratory: Present: lungs clear, normal breath sounds Cardiovascular/Chest: Present: regular rate, rhythm Abdomen: Present: soft, nontender Extremity: Present: other - RLE wrapped in AUDIE bandage from lower thigh to foot. Absent: lower extremity edema Neurologic: Present: normal mood/affect Eye contact: Present: cooperative, good eye contact Assessment/Plan Plan Narrative: POD #2 right arthroplasty exchange for septic arthritis. Joint aspirate growing Group B strep agalactiae. Continue vanc and zosyn until this speciates. He has a PICC in place for 6 weeks of abx. Anticoagulation is currently 325 mg aspirin bid. PT ordered to help determine discharge planning. Was notified overnight that his heart rhythm changed and appeared to be A. fib with RVR. Echocardiogram confirmed this. His home carvedilol was restarted and his heart rate improved. This morning's EKG shows he is back in sinus rhythm. - Problems/Diagnosis (1) Septic arthritis Problem: Acute Qualifiers: Septic arthritis location: knee Septic arthritis organism: due to unspecified organism Laterality: right Qualified Code(s): M00.9 - Pyogenic arthritis, unspecified (2) Acute renal injury Problem: Acute Narrative: No change since yesterday. GFR 52, creatinine 1.48. 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 transplanted heart: [place] heart Associated angina: angina presence unspecified Qualified Code(s): I25.10 - Atherosclerotic heart disease of [place] coronary artery without angina pectoris (5) Hypertension Problem: Chronic Qualifiers: Hypertension type: essential hypertension Qualified Code(s): I10 - Essential (primary) hypertension (6) Hyperlipidemia Problem: Chronic Qualifiers: Hyperlipidemia type: unspecified Qualified Code(s): E78.5 - Hyperlipidemia, unspecified (7) Hypothyroid Problem: Chronic Qualifiers: Hypothyroidism type: unspecified Qualified Code(s): E03.9 - Hypothyroidism, unspecified (8) History of DVT (deep vein thrombosis) Problem: Chronic (9) Rheumatoid arthritis Problem: Chronic (10) Atrial fibrillation with RVR Problem: Resolved
[2020-05-10] MEDS: VANCOMYCIN/WATER FOR INJ (PEG) 1 GM/200 ML BAG IV SCH ×2 (11:07→23:40)
[2020-05-10] MEDS ORDERED: RINGER'S SOLUTION,LACTATED 1,000 ML IV ONE (15:40)
[2020-05-10] MEDS: SENNOSIDES/DOCUSATE SODIUM 1 TAB TABLET PO SCH (21:03)
[2020-05-11] MEDS: PIPERACILLIN SODIUM/TAZOBACTAM 3.375 GM in DEXTROSE 5 % IN WATER 100 ML IV SCH ×6 (04:25→14:05)
[2020-05-11] MEDS: oxyCODONE HCL/ACETAMINOPHEN 1 TAB TABLET PO PRN ×4 (05:35→18:28)
[2020-05-11 07:29] LABS: Hematocrit 32.5 % (42.0-52.0); Hemoglobin 10.6 gm/dL (13.5-18.0); Mean Corpuscular Hemoglobin 29.7 pg (27-31); Mean Corpuscular Hgb Conc 32.6 g/dl (32-36); Mean Platelet Volume 11.4 fl (8-11.3); Neutrophil # 7.9 K/mm3 (1.3-6.0); Neutrophil % 76.6 % (42-75.0); Platelet Count 139 K/mm3 (150-450); Red Blood Count 3.57 M/mm3 (4.7-6.0); Red Cell Distribution Width 14.3 % (11.5-14.0); White Blood Count 10.3 K/mm3 (4.0-10.5)
[2020-05-11 07:41] LABS: Albumin * 2.4 gm/dl (3.4-5.0); Anion Gap 7.6 mmol/L (6.8-13.8); BUN/Creatinine Ratio 19.4 (9.0-21.6); Bilirubin, Total 0.6 mg/dL (0.0-1.1); Ca. Corrected For Albumin 9.4 mg/dL (8.4-10.2); Calcium * 8.4 mg/dL (7.9-10.9); Carbon Dioxide 29.9 mmol/L (24-32.6); Potassium 3.5 mmol/L (3.4-4.6); Total Protein 6.7 gm/dL (6.2-8.2)
[2020-05-11] MEDS: RAMIPRIL 2.5 MG CAPSULE PO SCH ×2 (08:31→20:14)
[2020-05-11] MEDS: CARVEDILOL 6.25 MG TABLET PO SCH ×2 (08:32→20:15)
[2020-05-11] MEDS: amLODIPine BESYLATE 5 MG TABLET PO SCH (08:32)
[2020-05-11] MEDS: ASPIRIN 325 MG TABLET.DR PO SCH ×2 (08:32→20:14)
[2020-05-11] MEDS: VANCOMYCIN/WATER FOR INJ (PEG) 1 GM/200 ML BAG IV SCH (11:03)
--- NOTE | 2020-05-11 12:29 | PN ---
Subjective - Date and Time Seen Date: 05/11/20 Time: 12:15 Subjective Narrative: Patient was able to walk with PT this morning, and had the dressing changed. Is eating and drinking well - no new concerns. Objective - Review of Systems Generalized/Overall Review: Denies: Fever Respiratory: Denies: Shortness of Breath Cardiac: Denies: Edema Abdominal: Reports: No Symptoms Reported Genitourinary Symptoms: Reports: No Symptoms Reported Musculoskeletal Complaints: Reports: Joint Pain - right knee - Vitals Vitals: Last Vital Signs Temp 36.6 C 05/11/20 10:00 Pulse 80 05/11/20 10:00 Resp 20 05/11/20 10:00 BP 124/62 05/11/20 10:00 Pulse Ox 98 05/11/20 10:00 - Abnormal Lab Findings Abnormal Lab Findings: Abnormal Lab Results 05/11/20 05/11/20 Range/Units 07:21 07:21 RBC 3.57 L (4.7-6.0) M/mm3 Hgb 10.6 L (13.5-18.0) gm/dL Hct 32.5 L (42.0-52.0) % RDW 14.3 H (11.5-14.0) % Plt Count 139 L (150-450) K/mm3 MPV 11.4 H (8-11.3) fl Immature Gran % (Auto) 1.30 H (0.001-0.429) % Immature Gran # (Auto) 0.13 H (0.000-0.0310) K/mm3 Neutrophils % 76.6 H (42-75.0) % Lymphocytes % 8.8 L (20-51) % Eosinophils % 4.1 H (0.0-3.0) % Neutrophils # 7.9 H (1.3-6.0) K/mm3 Lymphocytes # 0.91 L (1.5-3.5) k/mm3 BUN 24 H (6-23) mg/dL Albumin 2.4 L (3.4-5.0) gm/dl - Exam Constitutional: Present: Alert, Cooperative, No distress Respiratory: Present: normal breath sounds, no respiratory distress Cardiovascular/Chest: Present: regular rate, rhythm Abdomen: Present: Normal bowel sounds Extremity: Present: other - surgical bandage over right knee. Absent: lower extremity edema Skin Exam: Present: other - no erythema of right lower leg Eye contact: Present: cooperative, good eye contact Assessment/Plan Plan Narrative: POD #3 right arthroplasty exchange for septic arthritis. He reports feeling well, and pain is controlled with po meds. Has not required dilaudid in 2 days. Joint aspirate growing pansensitive Group B strep agalactiae. Continue vanc and zosyn until his culture obtained from the OR speciates, which should be later this evening. He has a PICC in place for 6 weeks of abx, which can happen through the [facility]. Anticoagulation is currently 325 mg aspirin bid. He was able to work with PT, and will try stairs with them this afternoon. His heart rhythm went into afib with RVR over the weekend, but resolved with his home coreg. HR currently 86, in sinus rhythm. He had an acute renal injury, which has resolved with fluids and treatment of his infection. Creatinine and GFR today of 1.24 and 64 respectively, down from 1.48 and 52. Likely DC home tomorrow. 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 transplanted heart: [place] heart Associated angina: angina presence unspecified Qualified Code(s): I25.10 - Atherosclerotic heart disease of [place] coronary artery without angina pectoris (5) Hypertension Problem: Chronic Qualifiers: Hypertension type: essential hypertension Qualified Code(s): I10 - Essential (primary) hypertension (6) Hyperlipidemia Problem: Chronic Qualifiers: Hyperlipidemia type: unspecified Qualified Code(s): E78.5 - Hyperlipidemia, unspecified (7) Hypothyroid Problem: Chronic Qualifiers: Hypothyroidism type: unspecified Qualified Code(s): E03.9 - Hypothyroidism, unspecified (8) History of DVT (deep vein thrombosis) Problem: Chronic (9) Rheumatoid arthritis Problem: Chronic (10) Atrial fibrillation with RVR Problem: Resolved
--- NOTE | 2020-05-11 13:17 | PN ---
Subjective - Date and Time Seen Date: 05/11/20 Time: 13:15 Subjective Narrative: Subjective: Reports no concerns. Was able to walk in the [place] with therapy. Pain is well-controlled. Voiding without any complications. Tolerating by mouth intake. Denies any nausea or vomiting. Denies fever chills. Physical exam: Alert and oriented to person, place and time Right lower extremity: Palpable dorsalis pedis pulse. Sensation grossly intact to light touch. Dressings clean and dry. Able to flex and extend ankle and toes. No excessive drainage. Drains in place Assessment: Postop day 3 status post irrigation and debridement with polyethylene exchange of right knee septic arthroplasty. Plan: Due to the need for pain control, post-operative limited mobility, protection of the surgical site and joint, monitoring of the wound, and the management of chronic medical conditions, heat requires continued inpatient care. Continue with activity as tolerated. Continue with anticoagulation. Cultures positive for group B strep and he need to continue with IV antibiotics for 6 weeks based on sensitivities. Remove drain. Pain control with goal to rely on oral medications. Continue bowel regimen. Will need 6 weeks with walker or assitive device to protect joint while ambulating during the recovery process. Discharge planning. Okay to discharge home from an orthopedic standpoint. He will continue with his antibiotics. I had like to see a repeat CBC with differential, ESR, CRP in 1 week. I will see him back in a week. Objective - Vitals Vitals: Last Vital Signs Temp 36.6 C 05/11/20 10:00 Pulse 82 05/11/20 13:04 Resp 20 05/11/20 10:00 BP 124/62 05/11/20 10:00 Pulse Ox 98 05/11/20 10:00 - Abnormal Lab Findings Abnormal Lab Findings: Abnormal Lab Results 05/11/20 05/11/20 Range/Units 07:21 07:21 RBC 3.57 L (4.7-6.0) M/mm3 Hgb 10.6 L (13.5-18.0) gm/dL Hct 32.5 L (42.0-52.0) % RDW 14.3 H (11.5-14.0) % Plt Count 139 L (150-450) K/mm3 MPV 11.4 H (8-11.3) fl Immature Gran % (Auto) 1.30 H (0.001-0.429) % Immature Gran # (Auto) 0.13 H (0.000-0.0310) K/mm3 Neutrophils % 76.6 H (42-75.0) % Lymphocytes % 8.8 L (20-51) % Eosinophils % 4.1 H (0.0-3.0) % Neutrophils # 7.9 H (1.3-6.0) K/mm3 Lymphocytes # 0.91 L (1.5-3.5) k/mm3 BUN 24 H (6-23) mg/dL Albumin 2.4 L (3.4-5.0) gm/dl Assessment/Plan - Problems/Diagnosis (1) Septic arthritis Problem: Acute Qualifiers: Septic arthritis location: knee Septic arthritis organism: due to unspecified organism Laterality: right Qualified Code(s): M00.9 - Pyogenic arthritis, unspecified (2) 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
[2020-05-11] MEDS: SENNOSIDES/DOCUSATE SODIUM 1 TAB TABLET PO SCH (20:14)
[2020-05-12] MEDS: oxyCODONE HCL/ACETAMINOPHEN 1 TAB TABLET PO PRN ×4 (00:55→15:24)
[2020-05-12] MEDS: MAGNESIUM HYDROXIDE 30 ML UDC PO PRN ×2 (05:09→08:51)
[2020-05-12] MEDS: RAMIPRIL 2.5 MG CAPSULE PO SCH (08:50)
[2020-05-12] MEDS: CARVEDILOL 6.25 MG TABLET PO SCH (08:50)
[2020-05-12] MEDS: ASPIRIN 325 MG TABLET.DR PO SCH (08:50)
[2020-05-12] MEDS: amLODIPine BESYLATE 5 MG TABLET PO SCH (08:51)
--- NOTE | 2020-05-12 11:02 | DS ---
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 transplanted heart: [place] heart Associated angina: angina presence unspecified Qualified Code(s): I25.10 - Atherosclerotic heart disease of [place] coronary artery without angina pectoris (5) Hypertension Problem: Chronic Qualifiers: Hypertension type: essential hypertension Qualified Code(s): I10 - Essential (primary) hypertension (6) Hyperlipidemia Problem: Chronic Qualifiers: Hyperlipidemia type: unspecified Qualified Code(s): E78.5 - Hyperlipidemia, unspecified (7) Hypothyroid Problem: Chronic Qualifiers: Hypothyroidism type: unspecified Qualified Code(s): E03.9 - Hypothyroidism, unspecified (8) History of DVT (deep vein thrombosis) Problem: Chronic (9) Rheumatoid arthritis Problem: Chronic (10) Atrial fibrillation with RVR Problem: Resolved Hospital Course: Patient with PMHx of previous knee replacement X3, previous ID X 2, rheumatoid a rthritis, previous DVT, eczema presented to the ED for acute right knee pain. He'd been having a fever for about 48 hours with body aches, but the knee pain started the night prior to admission. He's had his knee replaced twice, and he reports the second time was for aseptic loosening. His most recent surgery was several years ago. He was diagnosed with a septic joint in the ED. Joint aspiration was done, and he was taken to the OR for replacement of the hardware, and he was started on vanc and zosyn. PICC line placed on 05/09/20 (original became dislodged, replaced the following morning). He received vanc and zosyn from 05/08-05/11, at which time he was switched to Rocephin. Cultures from joint aspiration and from the OR grew heavy Group B Strep Agalactiae, pansensitive. He was able to walk with PT. Pain was controlled with percocet, which he was using approximately every 5 hours. He will require a total of 6 weeks IV antibiotics. His insurance would not allow him to receive this at home since he is not homebound, so he will come in to our [facility] daily through June 18, 2020. He will need to use a walker or assistive device for 6 weeks during the recovery process. He is to have a CBC, ESR, CRP drawn in a week, which have been ordered. He will need to see his surgeon in one week. He had brief afib with RVR overnight after his surgery, which resolved with re sumption of home coreg. He also had an JC, which resolved with fluids. One hour was needed to complete his discharge, including physical exam, coordination with his insurance company, medication ordering, and documentation. Procedures Performed: see notes below - Open irrigation and debridement with exchange of polyethylene right total knee arthroplasty Results and Findings: Pending Mircobiology Results 05/08/20 09:04 Blood Blood Culture - Preliminary NO GROWTH AFTER 48 HOURS 05/08/20 07:45 Blood Blood Culture - Preliminary NO GROWTH AFTER 48 HOURS Lab Pending Results 05/08/20 07:46: Uric Acid 8.0 H 05/08/20 08:00: WBC 18.5 H, RBC 4.56 L, Hgb 13.4 L, Hct 42.3, MCV 92.8, MCH 29.4, MCHC 31.7 L, RDW 14.0, Plt Count 159, MPV 12.0 H, Immature Gran % (Auto) 0.30, Immature Gran # (Auto) 0.06 H, Neutrophils % 88.7 H, Lymphocytes % 4.3 L, Monocytes % 6.6, Eosinophils % 0.0, Basophils % 0.1, Nucleated RBC % 0.0, Neutrophils # 16.4 H, Lymphocytes # 0.79 L, Monocytes # 1.2 H, Eosinophils # 0.0, Absolute Basophils 0.0 05/08/20 08:00: Sodium 135, Plasma Sodium 135, Potassium 3.8, Chloride 99, Carbon Dioxide 25.6, Anion Gap 14.2 H, BUN 19, Creatinine 1.53 H D, Est GFR (Non -Af Amer) 50 L D, BUN/Creatinine Ratio 12.4, Random Glucose 111 H, Calcium 9.2, Calcium Adj for Albumin 9.2, Total Bilirubin 1.0, AST 18, ALT 28, Alkaline Phosphatase 85, Total Protein 8.6 H, Albumin 3.6 05/08/20 08:00: PT 10.7, INR (Anticoag Therapy) 1.03 05/08/20 08:00: ESR 61 H 05/08/20 08:00: C-Reactive Prot, Quant 15.0 H 05/08/20 08:00: Lactic Acid, Venous 1.7 05/08/20 08:00: Troponin I Less than 0.017 05/08/20 09:15: SARS-CoV-2 (PCR) Not detected 05/08/20 09:30: B-Natriuretic Peptide 719 H 05/08/20 10:30: Fluid Color Luli, Fluid Appearance Cloudy, Fluid WBC 182729 H, Fluid RBC Greater than 1000.0 H, Fluid Neutrophils 82, Fluid Lymphocytes 6, Fluid Monocytes 12 05/09/20 07:51: WBC 14.8 H, RBC 3.76 L, Hgb 11.2 L, Hct 35.1 L, MCV 93.4, MCH 29.8, MCHC 31.9 L, RDW 14.3 H, Plt Count 127 L, MPV 11.8 H, Neutrophils % (Manual) 79 H, Band Neuts % (Manual) 2, Lymphocytes % (Manual) 11 L, Monocytes % (Manual) 8, Neutrophils # (Manual) 11.7 H, Lymphocytes # (Manual) 1.6, Monocytes # (Manual) 1.2 H, Platelet Estimate Decreased L, RBC Morphology Normal 05/09/20 07:51: Sodium 135, Plasma Sodium 135, Potassium 3.8, Chloride 100, Carbon Dioxide 27.6, Anion Gap 11.2, BUN 22, Creatinine 1.48 H, Est GFR (Non-Af Amer) 52 L, BUN/Creatinine Ratio 14.9, Random Glucose 100, Calcium 8.5, Calcium Adj for Albumin 9.1, Total Bilirubin 1.0, AST 14, ALT 21, Alkaline Phosphatase 67, Total Protein 7.2, Albumin 2.8 L 05/10/20 07:52: WBC 13.7 H, RBC 3.60 L, Hgb 10.6 L, Hct 33.1 L, MCV 91.9, MCH 29.4, MCHC 32.0, RDW 14.3 H, Plt Count 135 L, MPV 11.8 H, Immature Gran % (Auto) 0.60 H, Immature Gran # (Auto) 0.08 H, Neutrophils % 80.5 H, Lymphocytes % 8.6 L, Monocytes % 8.7, Eosinophils % 1.5, Basophils % 0.1, Nucleated RBC % 0.0, Neutrophils # 11.0 H, Lymphocytes # 1.17 L, Monocytes # 1.2 H, Eosinophils # 0.2, Absolute Basophils 0.0 05/10/20 07:52: Sodium 135, Plasma Sodium 135, Potassium 3.8, Chloride 100, Carbon Dioxide 27.8, Anion Gap 11.0, BUN 26 H, Creatinine 1.48 H, Est GFR (Non- Af Amer) 52 L, BUN/Creatinine Ratio 17.6, Random Glucose 109, Calcium 8.3, Calcium Adj for Albumin 9.1, Total Bilirubin 0.6, AST 13, ALT 19, Alkaline Phosphatase 73, Total Protein 6.4, Albumin 2.6 L 05/11/20 07:21: WBC 10.3 D, RBC 3.57 L, Hgb 10.6 L, Hct 32.5 L, MCV 91.0, MCH 29.7, MCHC 32.6, RDW 14.3 H, Plt Count 139 L, MPV 11.4 H, Immature Gran % (Auto) 1.30 H, Immature Gran # (Auto) 0.13 H, Neutrophils % 76.6 H, Lymphocytes % 8.8 L, Monocytes % 8.9, Eosinophils % 4.1 H, Basophils % 0.3, Nucleated RBC % 0.0, Neutrophils # 7.9 H, Lymphocytes # 0.91 L, Monocytes # 0.9, Eosinophils # 0.4, Absolute Basophils 0.0 05/11/20 07:21: Sodium 135, Plasma Sodium 135, Potassium 3.5, Chloride 101, Carbon Dioxide 29.9, Anion Gap 7.6, BUN 24 H, Creatinine 1.24, Est GFR (Non-Af Amer) 64 D, BUN/Creatinine Ratio 19.4, Random Glucose 102, Calcium 8.4, Calcium Adj for Albumin 9.4, Total Bilirubin 0.6, AST 18, ALT 25, Alkaline Phosphatase 82, Total Protein 6.7, Albumin 2.4 L 05/11/20 11:00: Vancomycin Trough 10.6 Discharge Location: Home Disposition: Home self-care Condition: Fair Discharge Activity: Weight bearing - as tolerated Discharge Diet: General/regular food Referrals: Danny De La Torre MD [Staff Physician] - One Week Justin Cardona DO [Primary Care Provider] - One Week Prescriptions (Any new or edited meds): Aspirin [Aspirin Enteric Coated] 325 mg PO BID #80 tablet.dr Transmission Status: Pending to [facility] Magnesium Hydroxide [Milk Of Magnesia] 30 ml PO DAILY PRN #1 bottle PRN Reason: Constipation Transmission Status: Pending to [facility] oxyCODONE HCL/ACETAMINOPHEN [Percocet 5 MG/325 MG] 2 tab PO Q6H PRN #112 tab PRN Reason: Moderate Pain (Pain Scale 4-6) Transmission Status: Sent to [facility] Sennosides/Docusate Sodium [Senokot-S] 2 tab PO HS PRN #1 bottle PRN Reason: Constipation Transmission Status: Pending to [facility] Complete Home Medications List: Complete Home Medication List: Aspirin 325 mg PO DAILY 10/19/12 Acetaminophen [Tylenol] 500 mg PO Q4H PRN MDD 8 tab 07/15/16 Multivitamins [Multivitamin [place]] 1 cap PO DAILY 07/15/16 [place]-3/Dha/Epa/Fish Oil [Fish Oil 500 mg Softgel] 1 ea PO DAILY 07/15/16 omeprazole magnesium 20 mg capsule,delayed release 20 mg PO DAILY 01/30/18 fluticasone propionate 50 mcg/actuation nasal spray,suspension 2 spray KYLEIGH DAILY #18.2 ml 02/21/19 nitroglycerin 0.4 mg sublingual tablet 0.4 mg SL Q5M PRN #20 tab 08/19/19 carvedilol 6.25 mg tablet 6.25 mg PO BID #180 tab 10/18/19 ramipril 10 mg capsule 10 mg PO BID #180 cap 10/18/19 hydrochlorothiazide 25 mg tablet 25 mg PO DAILY #90 tab 11/06/19 meloxicam 15 mg tablet 15 mg PO DAILY #90 tab 11/06/19 montelukast 10 mg tablet 10 mg PO DAILY #90 tab 11/06/19 amlodipine 5 mg tablet 5 mg PO DAILY #90 tab 12/02/19 atorvastatin 20 mg tablet 20 mg PO HS #90 tab 12/02/19 cetirizine 10 mg tablet 10 mg PO HS #90 tab 04/17/20 Ascorbic Acid [Vitamin C] 250 mg PO DAILY 05/08/20 Cholecalciferol (Vitamin D3) [Vitamin D3] 250 mcg PO DAILY 05/08/20 Zinc Gluconate [Zinc] 50 mg PO DAILY 05/08/20 Acetaminophen [Tylenol] 1,000 mg PO Q6H PRN tablet 05/12/20 Aspirin [Aspirin Enteric Coated] 325 mg PO BID #80 tablet. 05/12/20 Magnesium Hydroxide [Milk Of Magnesia] 30 ml PO DAILY PRN #1 bottle 05/12/20 Sennosides/Docusate Sodium [Senokot-S] 2 tab PO HS PRN #1 bottle 05/12/20 oxyCODONE HCL/ACETAMINOPHEN [Percocet 5 MG/325 MG] 2 tab PO Q6H PRN #112 tab 05/12/20 Forms: Patient Portal Registration
[2020-05-12 15:58] VITALS: BP 136/77
== END 2020-05-12 16:25 | disposition home or self-care (01) | DRG 486 ==
LOC: ER 07:31 → MS 07:31 → OBSVTOIN 12:32 → MS 12:45
PROVIDERS: ADMIT Family Medicine; ATTEND Family Medicine
DX: Z96.651 Presence of right artificial knee joint; M06.9 Rheumatoid arthritis, unspecified; I48.91 Unspecified atrial fibrillation; I25.10 Atherosclerotic heart disease of native coronary artery without angina pectoris; N17.9 Acute kidney failure, unspecified; Z86.718 Personal history of other venous thrombosis and embolism; E78.5 Hyperlipidemia, unspecified; M00.9 Pyogenic arthritis, unspecified; I11.9 Hypertensive heart disease without heart failure; E03.9 Hypothyroidism, unspecified